=== PATIENT | male | born 1945 | race Caucasian/White ===

== ENCOUNTER 2018-10-08 11:51 | Emergency (ER) | payer MEDICARE, OTHER, SELFPAY ==
[2018-10-08 11:56] VITALS: BP 139/98; PULSE 90; RESP 18; TEMP 36.7; O2SAT 98
--- NOTE | 2018-10-08 12:10 | DI.RAD_ITS ---
SYMPTOMS/DIAGNOSIS: MEDIAL PAIN S/P TRACTOR INJURY LEFT FEMUR: Four views. No acute fracture or dislocation is seen. No radiopaque foreign bodies are seen in the soft tissues. Vascular calcifications are present. Degenerative changes are seen in the knee. IMPRESSION: No acute fracture or dislocation.
--- NOTE | 2018-10-08 12:11 | ED.GENADUL_ITS ---
Discharge Plan Disposition Patient Disposition: HOME Condition: Improving Discharge Details Chief Complaint: GenMedical Clinical Impression: Hematoma of left thigh Primary Care Provider: Unknown,Unknown ED Provider: Sage Nava Discharge Instructions Instructions: Hematoma (ED) Additional Instructions: May leave Mepilex border dressing in place over the lower leg for 7 days and then removed. At that time you may perform daily wet-to-dry dressing changes. You will likely have ongoing increased bruising of the left leg. Your ultra sound showed a large hematoma. As we discussed these can sometimes turn to solid calcified material, therefore I have referred you to the general surgery clinic for reevaluation and to consider possible drainage. Return for any acute concerns. Medical Decision Making 73-year-old male was trying to jump start his tractor and while running alongside it 10 days ago pinched his left leg between the tire and the ground. States he was not run over. Since that time he is developed both a left medial thigh soft tissue mass and has been treating a left distal tibia skin ulceration with daily dressing changes. He is afebrile and has an exam that reveals probable hematoma of the left medial thigh. Mepilex placed on left distal tibia ulceration. Referred for ultrasound and Xray. Patient has a left thigh hematoma. No evidence of DVT. X-ray without underlying bony injury. As he is at risk for the development of myositis ossificans, I think there would be a consideration for drainage of the hematoma and will refer him to general surgery clinic in follow-up. HPI General Mode of arrival: ambulatory . Date/Time Provider Initiated Documentation: 10/08/18 11:52 . Limitations to Documentation: no limitations . Information obtained by: patient . History of Present Illness 73 year old M presents to the emergency department with the chief complaint of Left leg pain for 10 days after accident, described as moderate, Quality is described as dull, and is localized to the left and lower extremity. Patient reports no radiation. Patient started experiencing this day(s) and it has been intermittent. Rest improves symptom(s), Movement worsens symptoms . Patient notes no other symptoms.; denies chest pain, fever/chills and syncope. Patient did receive the following treatments prior to arrival, none Related Data Allergies Allergy/AdvReac Type Severity Reaction Status Date / Time bee venom protein (honey bee) Allergy Mild Dizziness/L Unverified 10/08/18 12:04 ightheade General Stated Complaint: GenMedical ASHWIN: 3 Review of Systems Review of Systems 6 systems reviewed and otherwise negative [facility] Medical History High cholesterol (Chronic) HTN (hypertension) (Chronic) Social History Smoking/Tobacco Use Status: Former Tobacco Use Alcohol Intake: current Alcohol Intake frequency: a few times a week Alcohol type: beer Drug use: Never Substance use type: does not use Do you feel safe at home: Yes Do you feel safe in your relationship?: Yes Exam Narrative Exam Narrative: GEN: awake, alert, oriented 3. Pleasant, well groomed, interactive. HEAD: Normocephalic, atraumatic ENT: Mucous membranes moist, oropharynx unremarkable, External ear exam unremarkable EYES: PERRL, EOMI NECK: Full ROM, no TIMMY, no menigismus CHEST/RESP: Nontender ABDOMEN: Soft, nontender, no mass. +Bowel sounds EXT: Full ROM, there are healed skin grafts of the left posterior calf. The left medial thigh has an area of approximately 5 x 2 cm probable hematoma/soft tissue mass. No bony instability. No tenderness. The left distal medial tibia has a area of ulceration approximately 7 cm in diameter Neuro: Grossly normal neurologic exam, conversant, interactive. Psych: Speech fluent, thoughts congruent, affect normal Course Vital Signs Temperature 36.7 C 10/08/18 11:56 Pulse 90 10/08/18 11:56 Respiratory Rate 18 10/08/18 11:56 Blood Pressure 139/98 H 10/08/18 11:56 Pulse Oximetry 98 10/08/18 11:56 Temperature 36.7 C 10/08/18 11:56 Temperature Source Skin 10/08/18 11:56 Pulse 90 10/08/18 11:56 Respiratory Rate 18 10/08/18 11:56 Respiratory Effort Non-Labored 10/08/18 12:02 Blood Pressure 139/98 H 10/08/18 11:56 Blood Pressure Position Sitting 10/08/18 11:56 Pulse Oximetry 98 10/08/18 11:56 Oxygen Delivery Method Room Air 10/08/18 11:56 Oxygen Flow Rate 0 10/08/18 11:56 Pain Level 4 10/08/18 11:56
--- NOTE | 2018-10-08 13:28 | DI.US_ITS ---
SYMPTOMS/DIAGNOSIS: LT MEDIAL THIGH MASS AFTER INJURY SOFT TISSUE EXTREMITY ULTRASOUND: There is a complex predominantly cystic lesion in the soft tissues of the medial aspect of the left thigh. It measures 8.3 x 1.7 x 8.0 cm. No internal blood flow is seen. This corresponds to the area of injury. This likely reflects hematoma. Abscess or seroma is considered less likely.
[2018-10-08 14:03] VITALS: BP 128/88; PULSE 82; RESP 18; TEMP 36.6; O2SAT 98
--- NOTE | 2018-10-09 07:23 | NUR.NOTE ---
Referral faxed to [facility]Nursing Note:
== END 2018-10-08 14:07 | disposition home or self-care (01) ==
LOC: ER 13:22
PROVIDERS: Emergency Provider Emergency Medicine
DX: S70.12XA Contusion of left thigh, initial encounter (principal); V84.5XXA Driver of special agricultural vehicle injured in nontraffic accident, initial encounter; Y92.73 Farm field as the place of occurrence of the external cause; L97.829 Non-pressure chronic ulcer of other part of left lower leg with unspecified severity; I10 Essential (primary) hypertension
CPT/HCPCS: 73552; 76881; 99284

== ENCOUNTER 2019-08-12 09:26 | Outpatient (CLI) | payer MEDICARE, OTHER, SELFPAY ==
--- NOTE | 2019-08-12 09:15 | DI.RAD_ITS ---
EXAM: XR STANDING ALIGNMENT CLINICAL HISTORY: eval R knee pain TECHNIQUE: COMPARISON: CR XR FEMUR LT from 10/08/2018 CR XR KNEE LT 2V AP,LAT from 08/12/2019 CR XR KNEE RT 2V AP,LAT from 08/12/2019 FINDINGS: The AP standing alignment view is interpreted in conjunction with two view series of both right knee and left knee. There are moderate degenerative changes of both hips with moderate narrowing of the cartilaginous abdiaziz nt spaces of both hips superiorly and mild acetabular spurring bilaterally. There are severe degenerative changes of the right knee, there is medial femoral subluxation on the t ibia. There is virtually complete loss of the cartilaginous joint space of the medial tibiofemoral j oint with marked subchondral sclerosis, cyst formation, and remodeling of the adjacent surfaces. Sarika y prominent hypertrophic changes of all 3 joints of the right knee are noted. There are moderate degenerative changes of the left knee, moderate narrowing of medial tibiofemoral c artilaginous joint space, slight medial femoral subluxation on the tibia, mild to moderate marginal o steophyte formation involving all 3 joints of the left knee. Old healed right diaphyseal tibiofibular fracture noted. Ankle mortise appears fairly well maintained bilaterally. IMPRESSION:
== END 2019-08-12 09:46 ==
PROVIDERS: Visit Provider Student in an Organized Health Care Education/Training Program
DX: M25.561 Pain in right knee (principal); M25.562 Pain in left knee; M17.0 Bilateral primary osteoarthritis of knee; M16.0 Bilateral primary osteoarthritis of hip; I10 Essential (primary) hypertension
CPT/HCPCS: 99203; 99214; 73560; 77073

== ENCOUNTER 2019-08-23 11:00 | Outpatient (CLI) | payer MEDICARE, OTHER, SELFPAY | END 2019-08-23 11:20 | PROVIDERS: PCP Internal Medicine; Visit Provider Student in an Organized Health Care Education/Training Program | DX: Z01.818 Encounter for other preprocedural examination (principal); M17.0 Bilateral primary osteoarthritis of knee; I10 Essential (primary) hypertension ==

== ENCOUNTER 2019-08-26 01:59 | Outpatient (CLI) | payer MEDICARE, OTHER, SELFPAY ==
[2019-08-26 21:56] LABS: COVID-19 RT-PCR UVMMC Result Negative (Negative)
== END 2019-08-26 02:19 ==
PROVIDERS: PCP Internal Medicine; Visit Provider Student in an Organized Health Care Education/Training Program
DX: M25.561 Pain in right knee; M25.562 Pain in left knee; M17.0 Bilateral primary osteoarthritis of knee; Z01.812 Encounter for preprocedural laboratory examination; Z01.818 Encounter for other preprocedural examination; Z03.818 Encounter for observation for suspected exposure to other biological agents ruled out
CPT/HCPCS: 36415; 80048; 85027; U0003

== ENCOUNTER 2019-08-26 08:14 | Outpatient (CLI) | payer MEDICARE, OTHER, SELFPAY ==
[2019-08-26 10:24] LABS: HCT 41.5 % (40.0-50.0); HGB 14.6 g/dL (13.5-17.5); Mean Corp. HGB Concentration 35.2 g/dL (32.0-36.0); Mean Corpuscular Hemoglobin 31.9 pg (27.0-33.0); Mean Corpuscular Volume 90.6 fL (80-95); Mean Platelet Volume 10.5 fL (8.0-11.0); Platelet Count 221 x1000/uL (130-400); RBC 4.58 m/cumm (4.50-6.00); RBC Distribution Width 13.2 % (11.8-14.1); White Blood Cell Count 6.35 k/cumm (4.4-10.8)
[2019-08-26 11:58] LABS: Anion Gap 8.3 mmol/L (3-11); BUN 17 mg/dL (7-18); CO2 29.7 mmol/L (21.0-32.0); CREATININE 1.05 mg/dL (0.70-1.30); Calcium 9.4 mg/dL (8.5-10.1); Chloride 103 mmol/L (98-107); Glucose 114 mg/dL (74-106); Sodium 141 mmol/L (136-145)
== END 2019-08-26 08:34 ==
PROVIDERS: PCP Internal Medicine; Visit Provider Student in an Organized Health Care Education/Training Program
DX: M25.561 Pain in right knee (principal); M25.562 Pain in left knee; M17.0 Bilateral primary osteoarthritis of knee; Z01.818 Encounter for other preprocedural examination; Z01.812 Encounter for preprocedural laboratory examination
CPT/HCPCS: 36415; 80048; 85027

== ENCOUNTER → 2019-08-28 08:00 | Outpatient (BNVA) | payer MEDICARE, OTHER, SELFPAY | PROVIDERS: PCP Internal Medicine; Visit Provider Student in an Organized Health Care Education/Training Program | DX: R69 Illness, unspecified (principal) ==

== ENCOUNTER 2019-08-28 09:21 | Observation (INO) | payer MEDICARE, OTHER, SELFPAY ==
[2019-08-28] VITALS (9 sets, daily range): BP systolic 100–136; BP diastolic 67–94; PULSE 53–75; RESP 12–20; TEMP 36.5–36.6; O2SAT 92–98
[2019-08-28] MEDS: Gabapentin 300 MG CAP PO (10:06)
[2019-08-28] MEDS: Celecoxib 200 MG CAP 400 MG PO (10:06)
[2019-08-28] MEDS: Acetaminophen 500 MG TAB 1000 MG PO (10:07)
[2019-08-28] MEDS: Lactated Ringers 1,000 ML 80 ML IV ×2 (10:35→14:41)
[2019-08-28] MEDS: ceFAZolin 2 GM/50 ML BAG IVPB (12:22)
[2019-08-28] MEDS: Bupivacaine 0.25% Pres-Free 30 ML VIAL (13:06)
[2019-08-28] MEDS: Ketorolac 30 MG/ML VIAL (13:06)
[2019-08-28] MEDS: Normal Saline 20 ML VIAL (13:07)
--- NOTE | 2019-08-28 15:01 | DSE_ITS ---
Date of service: 08/28/19 Time of Service: 17:05 DS: Diagnosis Discharge Diagnosis (1) Arthritis of both knees: Status: Acute Discharge Plan Disposition Patient Disposition: HOME Condition: Good Discharge Details Reason For Visit: Right Knee Arthritis Admit Date/Time: 08/28/19 09:21 Admit Provider: Adi Cardona Attending Provider: Adi Cardona Primary Care Provider: Freddie Savage Hospital Course Hospital Course: Patient was admitted to the medical/surgical floor following the procedure. The surgery was tolerated well without any notable medical, surgical, or anesthetic complications. Mobilization began postoperatively. Patrice was voiding spontaneously. Vitals were stable. Physical therapy worked with the patient and was cleared for discharge home. No acute medical issues. Pain was controlled on oral regimen. Home Meds and New Rx's Prescriptions: New aspirin 81 mg tablet,delayed release (DR/EC) 81 mg PO BID Qty: 60 RF: 0 acetaminophen 500 mg tablet 1,000 mg PO Q8H PRN (Reason: pain) Qty: 90 RF: 3 pantoprazole 40 mg tablet,delayed release (DR/EC) 40 mg PO DAILY Qty: 30 RF: 0 docusate sodium [Colace] 100 mg capsule 100 mg PO BID PRNQty: 10 RF: 0 gabapentin 300 mg capsule 300 mg PO QHS Qty: 7 RF: 0 oxycodone 5 mg tablet 5 mg PO Q4H Qty: 18 RF: 0 naproxen 500 mg tablet 500 mg PO BID PRNQty: 60 RF: 0 Continued gemfibrozil 600 mg tablet 600 mg PO BID RF: 0 hydrochlorothiazide 25 mg tablet 25 mg PO DAILY RF: 0 losartan 100 mg tablet 100 mg PO DAILY RF: 0 terbinafine HCl [Athlete's Foot (terbinafine)] 1 % cream 1 applic TP BID RF: 0 multivitamin,tx-minerals Tablet 1 tab PO DAILY RF: 0 Discontinued aspirin 81 mg tablet,delayed release (DR/EC) 81 mg PO DAILY RF: 0 Discharge Instructions Additional Instructions: Dr. Cardona?s Total Knee Discharge Instructions Activity: The most important activity is to walk. You should try to take short walks a few times a day. It is important that when resting you work on keeping the knee straight. Avoid putting a pillow behind the knee as this will encourage flexion. Work on range of motion exercises as provided by Physical Therapy and the preoperative booklet. - Start outpatient physical therapy within 2 weeks. - You should wear the PAMELA hose on both legs for 2 weeks. Dressing: Keep the surgical dressing (Mepilex) in place for at least one week. If you went home on the surgical day, you should remove the ANNAMARIE wrap on the second day and then apply the PAMELA hose. The dressing may get wet after 3 days but avoid soaking the dressing. If it gets wet, just lightly pat dry. Most patient prefer to cover with ClingWrap or Saran Wrap to keep the dressing dry. After the first week, the dressing may be removed and replaced with light gauze and tape or nothing. Medications: - You should take Tylenol and anti-inflammatory Celebrex as your primary pain control medications - You have been prescribed a stronger pain medication Oxycodone for breakthrough pain, take as needed as prescribed. - You have also been prescribed a stomach acid reduction agent Pantoprozole to help reduce stomach acid and reflux. - You have also been prescribed Gabapentin to take at night for nerve pain and sleep. - You will be taking Aspirin 81mg twice a day for DVT prevention unless instructed otherwise. - If you have constipation you should take Colace or Miralax (both [id number]). Miralax was called in. It takes most people 3-4 days to have a bowel movement. Follow-up: 2 weeks. You should also call physical therapy to work on scheduling outpatient therapy sessions which can begin at 2 weeks. If you have any acute concerns or questions, please do not hesitate to contact the office at [phone]. You may contact Dr. Cardona with any questions after hours through the hospital at [phone] or on his cell phone at [phone]. Referrals: Adi Cardona MD [ [facility] STAFF PHYSICIAN] - 09/16/19 3:00 pm Activity:: Activity as Tolerated Equipment/Supplies:: Walker Diet:: As Tolerated Discharge Orders Discharge Orders: Discharge Order (Routine); Ordered 08/28/19 Ordered By: Adi Cardona DS: Summary Status at Discharge Functional status at discharge: uses cane/walker Overall status at discharge: patient is progressing back to baseline Mental Status: mental status grossly normal Speech and Movement: speech and movement normal Mood: congruent mood Affect: normal affect Exam Psych Mental Status: mental status grossly normal Speech and Movement: speech and movement normal Mood: congruent mood Affect: normal affect DS: Data Vitals/I&O Vitals and I&O: Vital Signs Temperature 36.5 C 08/28/19 09:34 Pulse 58 L 08/28/19 09:34 Pulse Rhythm Regular 08/28/19 09:34 Respiratory Rate 18 08/28/19 09:34 Respiratory Effort 08/28/19 09:34 Respiratory Depth Normal 08/28/19 09:34 Respiratory Pattern Normal 08/28/19 09:34 Blood Pressure 136/86 08/28/19 09:34 Pulse Oximetry 98 08/28/19 09:34 Oxygen Delivery Method Room Air 08/28/19 09:34 Oxygen Flow Rate 0 08/28/19 09:34 Pain Level 0 08/28/19 09:34 Intake & Output 08/27/19 08/28/19 08/28/19 23:59 11:59 23:59 Intake Total 1170 / 1170 Output Total 500 / 500 Balance 670 / 670 Weight 118.6 kg Intake: IV 1170 / 1170 Output: Estimated Blood Loss 500 / 500 [facility] Medical History Diverticulosis (Acute) Esophageal reflux (Chronic) Hematoma of left thigh (Acute) Hemorrhoids (Acute) High cholesterol (Chronic) HTN (hypertension) (Chronic) Nicotine dependence (Acute) chewing tobacco Obesity (Chronic) Sensorineural hearing loss of both ears (Acute) Shortness of breath (Acute) PT. DENIES THIS Sleep apnea (Acute) DOES NOT USE CPAP Tinea of the body (Acute) PT. DENIES THIS Umbilical hernia (Acute) Social History Smoking/Tobacco Use Status: Current every day Alcohol Intake: current Alcohol Intake frequency: a few times a week Alcohol type: beer Drug use: Never Substance use type: does not use Current gender identity: male Do you feel safe at home: Yes Do you feel safe in your relationship?: Yes
--- NOTE | 2019-08-28 16:15 | IN_ITS ---
Date of service: 08/28/19 Time of Service: 16:15 PT Notes Visit Reasons: Right Knee Arthritis Physical Therapy Inpatient Initial Evaluation Date: 08/28/2019 Referring Doctor: Adi Cardona MD PT Orders: PT CONSULT: Status post Ortho surgery. Status post right R TKA Precautions: Fall. Standard. WBAT on right LE. Patient Profile/Admitting Diagnosis: Patrice this is a 74-year-old male male bilateral osteoarthritis status post right total knee arthroplasty on postoperative day 0. PMHX: Medical History Diverticulosis (Acute) Esophageal reflux (Chronic) Hematoma of left thigh (Acute) Hemorrhoids (Acute) High cholesterol (Chronic) HTN (hypertension) (Chronic) Nicotine dependence (Acute) chewing tobacco Obesity (Chronic) Sensorineural hearing loss of both ears (Acute) Shortness of breath (Acute) PT. DENIES THIS Sleep apnea (Acute) DOES NOT USE CPAP Tinea of the body (Acute) PT. DENIES THIS Umbilical hernia (Acute) Social History/Home Situation: Patrice lives with in a private home with 4 steps to enter with one rail that leads onto a porch and another step up to the main entrance of the house. He was independent with all aspects of ADLs prior to surgery but has had increasing difficulty with performing all of them due to persistent knee pain. Equipment Owned/DME: Front wheeled walker Subjective: I expected to have more pain with walking than this. Patrice is happy with how much she is able to do now without hurting as it did prior to surgery. He understands that the pain may be more eventually but he wants to stay on top of it. Objective: General Observation: IV in the right UE. TEDS on left leg. Mental Status: Alert and oriented x 4 Pain: 1?2/10 in the right knee with ambulation activity Vital signs: Within normal limits as measured before PT session by nurse Smith ROM: Right Upper Extremity: Shoulder Flexion WFL. Shoulder abduction WFL. Elbow flexion WFL. Wrist flexion WFL. Opening and closing of hand WFL. Left Upper Extremity: Shoulder Flexion WFL. Shoulder abduction WFL. Elbow flexion WFL. Wrist flexion WFL. Opening and closing of hand WFL. Right Lower Extremity: Hip flexion WFL. Hip abduction WFL. Knee flexion -10 to 110 degrees. Knee extension -10 degrees. Ankle dorsiflexion WFL. Ankle plantarflexion WFL. Left Lower Extremity: Hip flexion WFL. Hip abduction WFL. Knee flexion WFL. Ankle dorsiflexion WFL. Ankle plantarflexion WFL. Strength: Right Upper Extremity: Shoulder flexors 5/5. Shoulder abductors 5/5. Elbow flexors 5/5. Elbow extensors 5/5. [employer] strong. Left Upper Extremity: Shoulder flexors 5/5. Shoulder abductors 5/5. Elbow flexors 5/5. Elbow extensors 5/5. [employer] strong. Right Lower Extremity: Hip flexors 5/5. Hip abductors 5/5. Knee flexors 3-/5. Knee extensors 3-/5. Ankle dorsiflexors 5/5. Ankle plantarflexors 5/5. Left Lower Extremity:Hip flexors 5/5. Hip abductors 5/5. Knee flexors 5/5. Knee extensors 5/5. Ankle dorsiflexors 5/5. Ankle plantarflexors 5/5. Sensation: Intact as to pain and pressure on bilateral lower extremities. Bed Mobility/Transfers: Supine to sit modified independent Sit to stand standby assist requiring minimal verbal cueing for hand placement, requires use of front wheeled walker Stand to sit standby assist requiring minimal verbal cueing for hand placement Bed to chair standby assist requiring minimal verbal cueing for hand placement, requires use of front wheeled walker Chair to bed standby assist requiring minimal verbal cueing for hand placement, requires use of front wheeled walker Gait: Patient tolerated level surface ambulation of 260 feet using front wheeled walker with step through gait pattern with supervision assist from PT. ANNA Olivas provided wheelchair follow for safety. Patient also tolerated up-and-down six 4 inch steps and four 6 inch steps while holding onto bilateral rails requiring supervision assist with step to gait pattern. Reported minimal improvement in the right knee after activity. Balance: Static Sitting: Normal Dynamic Sitting: Normal Static Standing: Fair Dynamic Standing: Fair Special Tests: Mobility Limitations Standardized Measure [facility] 6 clicks Basic Mobility Inpatient Short Form: Raw Score: 24 CMS Score: 0% deficit Informed Consent/Education: Patient instructed in purpose of PT consult and plan of care. Assessment: Patrice demonstrates functional mobility decline requiring the need for a front wheeled walker for all mobility ADL performance, minimal limitation in range of motion, and minimal impairment in strength resulting from postoperat shannan status. Patrice this is a 74-year-old male male bilateral osteoarthritis status post right total knee arthroplasty on postoperative day 0. Patient presents with clinical signs and symptoms consistent with current/admitting diagnoses that have resulted to mobility limitations, gait instability, generalized weakness, and impairment of motor control as demonstrated by the following impairment level findings: 1. Decreased strength to right knee major muscle groups 2. Impaired standing balance 3. Limitation of joint range of motion in right knee Impairments are contributing to the following functional limitations: 1. Inability to safely ambulate without assistive device and physical assistance 2. Increase completion time for mobility ADL performance Patient is assessed as a [id number] moderate complexity based on the following: History: 74-year-old male with impairment level findings, functional limitations, and past medical history as indicated above Examination: Demonstrable impairment in strength, balance, and mobility level with underlying impairments and functional limitations as documented above Presentation:Evolving Decision Makin moderate complexity Goals: N/A. PT consult and 1 therapy session only. Plan of Care/Treatment Plan: N/A. PT consult and 1 therapy session only. DISCHARGE RECOMMENDATIONS: Home when medically cleared by orthopedic surgeon. May benefit from outpatient PT services at orthopedic surgeon's discretion at orthopedic follow-up in 2 weeks. PT intervention: Session today consisted of initial physical therapy evaluation and education/training on functional mobility performance using the front wheeled walker. TREATMENT CODE/TIME: 62070 x 30 minutes, 46161 x 26 minutes beginning at 16:15 PM. Thank you very much for this referral. Suni Rhoades PT, DPT, CLT [facility] [place], [place]
--- NOTE | 2019-08-28 16:58 | W.PM.OP ---
Date of service: 08/28/19 Time of Service: 14:58 Operative Note Operative Note DATE OF PROCEDURE: 08/28/19 PRE-OP DIAGNOSIS: Right Knee Arthritis POST-OP DIAGNOSIS: same PROCEDURE: Right Total Knee Arthroplasty with Intraoperative Navigation SURGEON: Adi Cardona [employer]ERCIAL ROOFING ESTIMATOR: Latanya Storm ANESTHESIA: regional and spinal ESTIMATED BLOOD LOSS: 500 PATHOLOGY: none sent TOURNIQUET TIME: 34 COMPLICATIONS: None Patient was transported to: PACU Patient's condition: stable Implants: 1. Depuy Attune Cruciate Retaining Femoral Component, Size 8 2. Depuy Attune Rotating Platform Tibial Component, Size 7 3. Depuy Attune 8x8mm CR, RP Poly 4. Depuy Attune Patellar Component, Size 41mm Indications: I have seen Patrice in clinic for symptoms of knee arthritis, confirmed with radiographic findings. He has exhausted nonoperative methods and was having significant limitations in daily function and desired better function and less pain. I discussed the technical details of a knee replacement. I explained the risks of the procedure to include, but not limited to, bleeding, infection, pain, stiffness, fracture, damage to nerves and vessels, damage to muscles and tendons, loosening, need for repeat procedure, blood clot and cardiopulmonary demise. Despite these risks, Patrice elected to proceed. Findings: There was significant signs of arthritis throughout the knee. Large osteophytes were present throughout with bony loose bodies. Orthoalign navigation was utilized due to leg deformity from previous fracture. Procedure Description: Patrice was greeted in the preoperative holding area where the correct side was identified and marked. The consent was reviewed with the patient and signed. The history and physical was updated. All questions were answered. Preoperative mediacations were administered: Acetaminophen 1000mg, Celebrex 400mg, Gabapentin 300mg, and Oxycontin 10mg. An adductor canal block was then administered by the anesthesia team in the PACU. Patrice was taken back to the operating room. A spinal anesthestic was then administered. The patient was placed into the supine position on the operating room table. A nonsterile tourniquet was placed high onto the leg but only used for cementing. Posts were placed for positioning during the procedure. All bony prominences were well padded. Prophylactic antibiotics in the form of Cefazolin were administered. 1g of Tranxemic Acid was given intravenously within 30 minutes of incision. The right leg was then prepped with Chloraprep and draped in a standard fashion with impervious stockinette and extremity drape with Iodine impregnated skin protection. A timeout to confirm correct identity, side and site, procedure, allergies, anesthesia, and medical concerns was performed. With the knee in some flexion, a midline incision was made overlying the knee. Full thickness skin flaps were raised once the extensor mechanism was encountered. These were raised medially and laterally. Any bleeding was controlled with electrocautery. Once the extensor mechanism was fully exposed, a medial parapatellar arthrotomy was performed in a flexed position. All bleeding from the arthrotomy and the geniculate arteries was coagulated. A medial subperiosteal peel was performed with electrocautery to the midcoronal plane. The fat pad was removed while keeping the patellar tendon protected. The anterior distal femur synovium was removed for later visualization. The ACL and PCL were resected and the anterior horn of the lateral meniscus was transected. The knee was then flexed with the patella everted. Large osteophytes from the tibia were removed. Large osteophytes from the femur were removed. A single starting pin was then placed 1cm anterior to the PCL insertion and the notch in the direction of the femoral head. The OrthoAlign device was applied over the pin. It was oriented to be in line with the epicondylar axis and the trochlear groove. It was then pinned into place. The navigation computer was then turned on and calibrated. The distal femur cut was set at 0 degrees varus/valgus and 2.5 degrees flexion. The distal femur cutting guide then was positioned for a 11mm cut due to 15 degree flexion contracture. The distal femur was cut with an oscillating saw while protecting the soft tissues. The tibia was then addressed. The OrthoAlign device was placed over the tibial tubercle and medial tibia and secured into position. Once again, OrthoAlign was calibrated and then set for a 0 degree varus/valgus cut and 5 degrees of posterior slope. With this locked into position, the cut thickness stylus was used to assess cut thickness. The medial side, most involved side, was set for a 4mm cut. This was then held in position and pinned into place with 2 additional pins and a cross pin for stability. The medial and lateral collateral ligaments were protected and the cut was performed. With this completed, it was assessed and noted to be of appropriate dimensions. The guide and OrthoAlign was removed. A spacer block was inserted and the knee was brought into extension. The 7mm spacer block provided full extension, without hyperextension and with stability of both the medial and lateral collateral ligaments was assessed. The pins from the femur and the tibia were then removed. The distal femur was then sized. The anterior stylus was placed onto the lateral ridge of the anterior femur. This indicated a size 8 femur. The external rotation of the guide was adjusted to 3 degrees to match the epicondylar axis, perpendicular to [place]s line. The 4-in-1 cutting guide was the placed. The posterior medial femur cut was evaluated and appeared of good thickness. The spacer block was inserted underneath the cutting guide and stability was confirmed in 90 degrees of flexion. An kenji wing was used to confirm appropriate position of the anterior cut to avoid notching. This cutting guide was ensured to be flush on the cut surface and then pinned into place with headed pins. While protecting the soft tissues, quad tendon, and collateral ligaments, the anterior and posterior cuts were performed with a saw. The central two pins were removed and the posterior and anterior chamfers were cut next. The notch-cutting guide was placed. This was pinned to lateralize the femoral component as much as possible while keeping it flush on the cut surface. This was then pinned into position. A reciprocating saw was used to make the notch cut. A rasp smoothed the cut surfaces. A trial posterior stabilized femoral component was then inserted, impacted down to the cut surfaces, and the lug holes were drilled. A provisional trial tibial component was placed and the knee was brought through range of motion. There was noted to be excellent extension and flexion with an 8mm poly. There was no significant instability. The patella was tracking without thumbs. The tibial cut surface was fully exposed. The medial and lateral menisci were removed. The tibia was then sized as a 7. The tibia had been previously marked during trialing to correspond to the center of the tibial component to help with rotation. The trial was aligned to this karine, approximately rotated to the medial 1/3rd of the tibial tubercle. The trial was pinned into place. The tibia was prepared with a reamer and a keel punch. The knee was then brought into extension and the patella was measured as 28mm. Using the patellar clamp and cut guide, this was resected to a flat surface with at least 13mm of thickness remaining. The size 41 patella fit the best. This was oriented and then clamped into position. The lugs were drilled. The trial components were removed. The final components, except for the polyethylene were opened on the back table. The periosteal and capsular tissues, especially posteriorly, around the knee were then systematically injected with a periarticular cocktail consisting of 50cc 0.25% Marcaine, 30mg Ketorolac, 20cc of Exparal and 50cc of injectable saline. The tourniquet was then inflated to 275mmHg. The knee was thoroughly irrigated with a pulse lavage and dried. On the back table, with the implants opened, the cement was mixed. 2 batches of antibiotic laden cement were prepared with vacuum assistance. After the cement was ready a small amount was placed on to the back side of the tibial component at the keel. A small amount was placed onto the posterior flange of the femur. Cement was manual pressurized and impregnated into the cut surface of the tibia. The tibial component was then inserted into the cut surface and impacted into position. Excess cement was removed and the component was reimpacted. Again, excess cement was removed and our attention was then turned to the femur. The femoral cut surface was once again dried and cement was manually impacted into the cut surface. The femoral component was lined with the lug holes and impacted. Excess cement was removed. It was ensured to be down against the cut surface. The trial polyethylene was then inserted and the leg was brought out into full extension for the duration of the cement curing process, approximately 15min. Cement was lastly manually impacted into the cut surface of the patella and the patellar button was clamped into position and held. During this process attention was turned to the gutters of the knee and for all interfaces for any excess cement. After the cement had finally cured, approximately 15min, the clamp was removed from the patella and the knee was taken through range of motion. A size 8mm polyethylene component provided the best range of motion and stability with less than 2mm gapping with medial and lateral stress and full extension without significant hyperextension. The patella was tracking with a no-thumbs technique. The trial poly was removed and once again the knee was checked for any loose, excess, or errant cement. The poly component was then inserted into position after cleaning and drying the tibial tray. The capsule was then reapproximated with a No. 1 Vicryl at multiple locations. The capsule was finally closed with a No. 2 Stratafix, barbed suture. The tourniquet was then released and the arthrotomy appeared watertight without significant bleeding. The second dosing of 1g TXA was started. Deep tissues were then reapproximated with 0 Vicryl and 2-0 Vicryl. The skin was closed with a running 3-0 Monocryl in a subcuticular fashion. This was reinforced with skin glue. A Mepilex silver dressing was applied along with a [id number] ANNAMARIE wrap. A CryoCuff was applied. Patrice was transferred to the hospital bed without difficulty an suffering no apparent complication. Patrice has a good prognosis. Physical therapy will start today and without restrictions, weight-bearing as tolerated. Aspirin 81mg BID will be used for DVT prophylaxis.
--- NOTE | 2019-08-28 18:23 | NUR.NOTE ---
Nursing Note: 1540 Admitted to Room 225 via bed from PACU. Report from NAVDEEP Carrera. Pt A&O x3. Minimal pain.
== END 2019-08-28 18:00 | disposition home or self-care (01) ==
LOC: PDS 15:08 → MS 15:09
PROVIDERS: Admitting Provider Student in an Organized Health Care Education/Training Program; PCP Internal Medicine; Visit Provider Student in an Organized Health Care Education/Training Program
PROC: 0SRC0J9 Replacement of Right Knee Joint with Synthetic Substitute, Cemented, Open Approach (ICD-10-PCS; CPT 27447; principal; 2019-08-28 13:00)
DX: M17.11 Unilateral primary osteoarthritis, right knee (principal); M25.561 Pain in right knee; Z96.651 Presence of right artificial knee joint; G89.18 Other acute postprocedural pain; I10 Essential (primary) hypertension; G47.33 Obstructive sleep apnea (adult) (pediatric)
CPT/HCPCS: 27447; 20985; C1776; 97162; 97530; NC; G0378; J0690; J1100; J1885; J2001; J2250; J2405

== ENCOUNTER 2019-09-19 09:52 | Outpatient (CLI) | payer MEDICARE, OTHER, SELFPAY ==
--- NOTE | 2019-09-19 08:30 | DI.RAD_ITS ---
EXAM: XR KNEE RT 1V CLINICAL HISTORY: 1st post op. TECHNIQUE: 2D digital imaging was performed. Standing AP views were performed from the pelvis throu gh the ankles. COMPARISON: CR XR KNEE LT 2V AP,LAT from 08/12/2019 CR XR KNEE RT 2V AP,LAT from 08/12/2019 CR XR STANDING ALIGNMENT from 09/19/2019 FINDINGS: There is mild bilateral hip joint space narrowing. There is a total right knee prosthesis which show s satisfactory alignment.. There are old healed fracture deformities of the right proximal tibia and fibula. There are advanced degenerative changes of the left knee. The ankle joint spaces are well m aintained. There is a leg length discrepancy at the level of the femoral heads, with the right femor al head projecting approximately 15 millimeters superior to the right. IMPRESSION: Right knee prosthesis. Right tibial and fibular fracture deformities. Degenerative changes of the l eft knee. Leg length discrepancy. DATA REPOSITORY: RADIATION DOSE DELIVERED:
== END 2019-09-19 10:12 ==
PROVIDERS: PCP Internal Medicine; Referring Provider Internal Medicine; Visit Provider Student in an Organized Health Care Education/Training Program
DX: Z96.651 Presence of right artificial knee joint (principal); M21.70 Unequal limb length (acquired), unspecified site; Z47.1 Aftercare following joint replacement surgery; M17.0 Bilateral primary osteoarthritis of knee; I10 Essential (primary) hypertension
CPT/HCPCS: 73560; 77073

== ENCOUNTER 2019-10-04 08:01 | Outpatient (CLI) | payer MEDICARE, OTHER, SELFPAY ==
[2019-10-05 23:52] LABS: COVID-19 RT-PCR Result NEGATIVE (Negative)
== END 2019-10-04 08:21 ==
PROVIDERS: PCP Internal Medicine; Visit Provider Student in an Organized Health Care Education/Training Program
DX: M17.0 Bilateral primary osteoarthritis of knee (principal)
CPT/HCPCS: U0003

== ENCOUNTER 2019-10-08 09:29 | Observation (INO) | payer MEDICARE, OTHER, SELFPAY ==
[2019-10-08] VITALS (13 sets, daily range): BP systolic 85–139; BP diastolic 59–87; PULSE 55–93; RESP 12–18; TEMP 35.2–36.7; O2SAT 93–98
[2019-10-08] MEDS: Acetaminophen 500 MG TAB 1000 MG PO ×2 (09:45→14:18)
[2019-10-08] MEDS: Celecoxib 200 MG CAP 400 MG PO (09:45)
[2019-10-08] MEDS: Lactated Ringers 1,000 ML 80 ML IV (09:45)
[2019-10-08] MEDS: ceFAZolin 2 GM/50 ML BAG IVPB (10:37)
--- NOTE | 2019-10-08 10:43 | DSE_ITS ---
Date of service: 10/08/19 DS: Diagnosis Discharge Diagnosis (1) Left knee DJD: Status: Acute Discharge Plan Disposition Patient Disposition: HOME Condition: Good Discharge Details Reason For Visit: L KNEE DJD Admit Date/Time: 10/08/19 09:29 Admit Provider: Adi Cardona Attending Provider: Adi Cardona Primary Care Provider: Freddie Savage Hospital Course Hospital Course: Patient was admitted to the medical/surgical floor following the procedure. The surgery was tolerated well without any notable medical, surgical, or anesthetic complications. Mobilization began postoperatively. Patrice was voiding spontaneously. Vitals were stable. Physical therapy worked with the patient and was cleared for discharge home. No acute medical issues. Pain was controlled on oral regimen. Home Meds and New Rx's Prescriptions: New aspirin 81 mg tablet,delayed release (DR/EC) 81 mg PO BID Qty: 60 RF: 0 gabapentin 300 mg capsule 300 mg PO QHS Qty: 7 RF: 0 Continued gemfibrozil 600 mg tablet 600 mg PO BID RF: 0 hydrochlorothiazide 25 mg tablet 25 mg PO DAILY RF: 0 losartan 100 mg tablet 100 mg PO DAILY RF: 0 terbinafine HCl [Athlete's Foot (terbinafine)] 1 % cream 1 applic TP BID RF: 0 multivitamin,tx-minerals Tablet 1 tab PO DAILY RF: 0 acetaminophen 500 mg tablet 1,000 mg PO Q8H PRN (Reason: pain) Qty: 90 RF: 3 naproxen 500 mg tablet 500 mg PO BID PRNQty: 60 RF: 0 Discontinued ibuprofen [Advil] 200 mg Tablet 200 - 600 mg PO Q6H PRNRF: 0 aspirin 81 mg tablet,delayed release (DR/EC) 81 mg PO BID Qty: 60 RF: 0 Discharge Instructions Additional Instructions: Dr. Cardona?s Total Knee Discharge Instructions Activity: The most important activity is to walk. You should try to take short walks a few times a day. It is important that when resting you work on keeping the knee straight. Avoid putting a pillow behind the knee as this will encourage flexion. Work on range of motion exercises as provided by Physical Therapy and the preoperative booklet. - Start outpatient physical therapy within 2 weeks. - You should wear the PAMELA hose on both legs for 2 weeks. Dressing: Keep the surgical dressing (Mepilex) in place for at least one week. If you went home on the surgical day, you should remove the ANNAMARIE wrap on the second day and then apply the PAMELA hose. The dressing may get wet after 3 days but avoid soaking the dressing. If it gets wet, just lightly pat dry. Most patient prefer to cover with ClingWrap or Saran Wrap to keep the dressing dry. After the first week, the dressing may be removed and replaced with light gauze and tape or nothing. Medications: - You should take Tylenol and anti-inflammatory Naproxen as your primary pain control medications - You have been prescribed a stronger pain medication Oxycodone for breakthrough pain, take as needed as prescribed. - You have also been prescribed a stomach acid reduction agent Pantoprozole to help reduce stomach acid and reflux. - You have also been prescribed Gabapentin to take at night for nerve pain and sleep. - You will be taking Aspirin 81mg twice a day for DVT prevention unless instructed otherwise. - If you have constipation you should take Colace or Miralax (both [id number]). Miralax was called in. It takes most people 3-4 days to have a bowel movement. Follow-up: 2 weeks. You should also call physical therapy to work on scheduling outpatient therapy sessions which can begin at 2 weeks. If you have any acute concerns or questions, please do not hesitate to contact the office at [phone]. You may contact Dr. Cardona with any questions after hours through the hospital at [phone] or on his cell phone at [phone]. Stand Alone Forms: Nursing Discharge Form Referrals: Adi Cardona MD [ [facility] STAFF PHYSICIAN] - 10/28/19 9:00 am Activity:: Activity as Tolerated Equipment/Supplies:: No Equipment Needed Diet:: As Tolerated Discharge Orders Discharge Orders: Discharge Order (Routine); Ordered 10/08/19 Ordered By: Adi Cardona DS: Summary Status at Discharge Functional status at discharge: uses cane/walker Overall status at discharge: patient is progressing back to baseline Mental Status: mental status grossly normal Speech and Movement: speech and movement normal Mood: congruent mood Affect: normal affect Exam Psych Mental Status: mental status grossly normal Speech and Movement: speech and movement normal Mood: congruent mood Affect: normal affect DS: Data Vitals/I&O Vitals and I&O: Vital Signs Temperature 36.6 C 10/08/19 09:48 Pulse 93 H 10/08/19 09:48 Pulse Rhythm Regular 10/08/19 09:48 Respiratory Rate 18 10/08/19 09:48 Respiratory Effort 10/08/19 09:48 Respiratory Depth Normal 10/08/19 09:48 Respiratory Pattern Normal 10/08/19 09:48 Blood Pressure 139/87 10/08/19 09:48 Pulse Oximetry 98 10/08/19 09:48 Oxygen Delivery Method Room Air 10/08/19 09:48 Oxygen Flow Rate 0 10/08/19 09:48 Comment 10/08/19 09:48 Intake & Output 10/07/19 10/07/19 10/08/19 11:59 23:59 11:59 Weight 116.8 kg [facility] Medical History Diverticulosis (Acute) Esophageal reflux (Chronic) Hematoma of left thigh (Acute) Hemorrhoids (Acute) High cholesterol (Chronic) HTN (hypertension) (Chronic) Left knee DJD (Acute) Nicotine dependence (Acute) chewing tobacco Obesity (Chronic) Sensorineural hearing loss of both ears (Acute) Shortness of breath (Acute) PT. DENIES THIS Sleep apnea (Acute) DOES NOT USE CPAP Tinea of the body (Acute) PT. DENIES THIS Umbilical hernia (Acute) Surgical History History of colonoscopy (Chronic) History of fracture (Acute) right leg History of hernia repair (Chronic) Status post total right knee replacement (Acute 08/28/19) Social History Smoking/Tobacco Use Status: Current every day Alcohol Intake: current Alcohol Intake frequency: a few times a week Alcohol type: beer Drug use: Never Substance use type: does not use Current gender identity: male Do you feel safe at home: Yes Do you feel safe in your relationship?: Yes
[2019-10-08] MEDS: Bupivacaine 0.25% Pres-Free 30 ML VIAL (11:09)
[2019-10-08] MEDS: Ketorolac 30 MG/ML VIAL (11:10)
[2019-10-08] MEDS: Normal Saline 20 ML VIAL (11:11)
--- NOTE | 2019-10-08 14:24 | ROE_ITS ---
Date of service: 10/08/19 Time of Service: 12:24 Operative Note Operative Note DATE OF PROCEDURE: 10/08/19 PRE-OP DIAGNOSIS: Left Knee Osteoarthritis POST-OP DIAGNOSIS: same PROCEDURE: Left Total Knee Replacement SURGEON: Adi Cardona ELECTRIC BATH ATTENDANT: Yolanda Wesley ANESTHESIA: GETA and regional ESTIMATED BLOOD LOSS: 200 PATHOLOGY: none sent TOURNIQUET TIME: 33 COMPLICATIONS: None Patient was transported to: PACU Patient's condition: stable Implants: 1. Depuy Attune Cruciate Retaining Femoral Component, Size 7 2. Depuy Attune Rotating Platform Tibial Component, Size 7 3. Depuy Attune 7x6 CR,RP Poly 4. Depuy Attune Patellar Component, Size 38 Indications: I have seen Patrcie in clinic for symptoms of knee arthritis, confirmed with radiographic findings. Patrice has exhausted nonoperative methods and was having significant limitations in daily function and desired better function and less pain. He had a successful replacement on the right side. I discussed the technical details of a knee replacement. I explained the risks of the procedure to include, but not limited to, bleeding, infection, pain, stiffness, fracture, damage to nerves and vessels, damage to muscles and tendons, loosening, need for repeat procedure, blood clot and cardiopulmonary demise. Despite these risks, he elected to proceed. Findings: There was significant signs of arthritis throughout the knee. Procedure Description: Patrice was greeted in the preoperative holding area where the correct side was identified and marked. The consent was reviewed with the patient and signed. The history and physical was updated. All questions were answered. Preoperative mediacations were administered: Acetaminophen 1000mg, Celebrex 400mg, and Gabapentin 300mg. An adductor canal block was then administered by the anesthesia team in the PACU. Patrice was taken back to the operating room. A general anesthetic was administered. The patient was placed into the supine position on the operating room table. A nonsterile tourniquet was placed high onto the leg but only used for cementing. Posts were placed for positioning during the procedure. All bony prominences were well padded. Prophylactic antibiotics in the form of Cefazolin were administered. 1g of Tranxemic Acid was given intravenously within 30 minutes of incision. The left leg was then prepped with Chloraprep and draped in a standard fashion with impervious stockinette and extremity drape. A second prep with Chloraprep was performed prior to placing Ioband. A timeout to confirm correct identity, side and site, procedure, allergies, anesthesia, and medical concerns was performed. With the knee in some flexion, a midline incision was made overlying the knee. Full thickness skin flaps were raised once the extensor mechanism was encountered. These were raised medially and laterally. Any bleeding was controlled with electrocautery. Once the extensor mechanism was fully exposed, a medial parapatellar arthrotomy was performed in a flexed position. All bleeding from the arthrotomy and the geniculate arteries was coagulated. A medial subperiosteal peel was performed with electrocautery to the midcoronal plane. The fat pad was removed while keeping the patellar tendon protected. The anterior distal femur synovium was removed for later visualization. The ACL and PCL were resected and the anterior horn of the lateral meniscus was transected. The knee was then flexed with the patella everted. Large osteophytes from the tibia were removed. Large osteophytes from the femur were removed. Using a step drill, and based on preoperative templating, the femoral canal was entered. This was done with a step drill without any difficulty. The intramedullary distal femoral cut guide was inserted, set to a 5 degree valgus cut and 9mm cut thickness. There was some hypoplasia of the lateral femoral condyle and any remnant cartilage of the medial femoral condyle was removed for appropriate thickness. The distal femoral cut guide was then held in position and pinned. With the soft tissues protected, the distal cut was performed. This was passed over a few times to ensure a planar cut. I then turned attention to the tibia. The extramedullary guide was placed onto the leg. The distal aspect was slid medial to adjust for position of center of ankle and stay in line with shaft of the tibia. Approximately 3-5 degrees of posterior slope was kept in the proximal cutting guide. The center of the guide was aligned with the PCL. The stylus was used to assess cut thickness. The medial side, most involved side, was set for a 4mm cut. This was then held in position and pinned into place with 2 additional pins and a cross pin for stability. The medial and lateral collateral ligaments were protected and the cut was performed. With this completed, it was assessed and noted to be of appropriate dimensions. The guide was removed. A spacer block was inserted and the knee was brought into extension. The 6mm spacer block provided full extension, without hyperextension and with stability of both the medial and lateral collateral ligaments was assessed. The pins from the femur and the tibia were then removed. The distal femur was then sized. The anterior stylus was placed onto the lateral ridge of the anterior femur. This indicated a size 7 femur. The external rotation of the guide was adjusted to 3 degrees to match the epicondylar axis, perpendicular to Ciales?s line. The 4-in-1 cutting guide was the placed. The posterior medial femur cut was evaluated and appeared of good thickness. The spacer block was inserted underneath the cutting guide and stability was confirmed in 90 degrees of flexion. An kenji wing was used to confirm appropriate position of the anterior cut to avoid notching. This cutting guide was ensured to be flush on the cut surface and then pinned into place with headed pins. While protecting the soft tissues, quad tendon, and collateral ligaments, the anterior and posterior cuts were performed with a saw. The central two pins were removed and the posterior and anterior chamfers were cut next. The notch-cutting guide was placed. This was pinned to lateralize the femoral component as much as possible while keeping it flush on the cut surface. This was then pinned into position. A reciprocating saw was used to make the small notch cut. A trial CR femoral component was then inserted, impacted down to the cut surfaces, and the lug holes were drilled. A provisional trial tibial component was placed and the knee was brought through range of motion. There was noted to be excellent extension and flexion. There was no significant instability. The patella was tracking without thumbs. The tibial cut surface was fully exposed. The medial and lateral menisci were removed. The tibia was then sized as a 3. The tibia had been previously marked during trialing to correspond to the center of the tibial component to help with rotation. The trial was aligned to this karine, approximately rotated to the medial 1/3rd of the tibial tubercle. The trial was pinned into place. The tibia was prepared with a reamer and a keel punch. The knee was then brought into extension and the patella was measured as 25mm. Using the patellar clamp and cut guide, this was resected to a flat surface with at least 13mm of thickness remaining. The size 38 patella fit the best. This was oriented and then clamped into position. The lugs were drilled. The trial components were removed. The final components, except for the po lyethylene were opened on the back table. The periosteal and capsular tissues, especially posteriorly, around the knee were then systematically injected with a periarticular cocktail consisting of 50cc 0.25% Marcaine, 30mg Ketorolac, 20cc of Exparal and 50cc of injectable saline. The tourniquet was then inflated to 275mmHg. The knee was thoroughly irrigated with a pulse lavage and dried. On the back table, with the implants opened, the cement was mixed. 2 batches of antibiotic laden cement were prepared with vacuum assistance. After the cement was ready it was placed on to the back side of the tibial component. A small amount was placed onto the posterior flange of the femur. Cement was manual pressurized and impregnated into the cut surface of the tibia. The tibial component was then inserted into the cut surface and impacted into position. Excess cement was removed and the component was reimpacted. Again, excess cement was removed and our attention was then turned to the femur. The femoral cut surface was once again dried and cement was manually impacted into the cut surface. The femoral component was lined with the lug holes and impacted. Excess cement was removed. It was ensured to be down against the cut surface. The trial polyethylene was then inserted and the leg was brought out into full extension for the duration of the cement curing process, approximately 15min. Cement was lastly manually impacted into the cut surface of the patella and the patellar button was clamped into position and held. During this process attention was turned to the gutters of the knee and for all interfaces for any excess cement. While the cement was hardening, the knee was irrigated with Irrisept chlorhexadine solution. It was allowed to sit in the knee for 3 guillermina zofia. After the cement had finally cured, approximately 15min, the clamp was removed from the patella and the knee was taken through range of motion. A size 6mm polyethylene component provided the best range of motion and stability with less than 2mm gapping with medial and lateral stress and full extension without significant hyperextension. The patella was tracking with a no-thumbs technique. The trial poly was removed and once again the knee was checked for any loose, excess, or errant cement. The poly component was then inserted into position after cleaning and drying the tibial tray. The capsule was then reapproximated with a No. 1 Vicryl at multiple locations. The capsule was finally closed with a No. 2 Stratafix, barbed suture. The tourniquet was then released and the arthrotomy appeared watertight without significant bleeding. The second dosing of 1g TXA was started. Deep tissues were then reapproximated with 0 Vicryl and 2-0 Vicryl. The skin was closed with a running 3-0 Monocryl in a subcuticular fashion. This was reinforced with skin glue. A Mepilex silver dressing was applied along with a [id number] ANNAMARIE wrap. A CryoCuff was applied. Patrice was transferred to the hospital bed without difficulty an suffering no apparent complication. Patrice has a good prognosis. Physical therapy will start today and without restrictions, weight-bearing as tolerated. Aspirin 81mg BID will be used for DVT prophylaxis.
[2019-10-08] MEDS: ceFAZolin 1 GM/50 ML BAG IVPB (14:59)
--- NOTE | 2019-10-08 15:30 | PT.INIE ---
Date of service: 10/08/19 Time of Service: 15:30 PT Notes Visit Reasons: L KNEE DJD Physical Therapy Inpatient Initial Evaluation Date: 10/08/2019 Dulce Referring Doctor: PT Orders: PT CONSULT: Status post Ortho surgery. Status post left TKA. Precautions: Fall. Standard. WBAT on left LE. Patient Profile/Admitting Diagnosis: Patrice is a 74-year-old male with left knee degenerative joint disease and status post left total arthroplasty on postoperative day 0. S/P R TKA on 08/28/2019. PMHX: Medical History Diverticulosis (Acute) Esophageal reflux (Chronic) Hematoma of left thigh (Acute) Hemorrhoids (Acute) High cholesterol (Chronic) HTN (hypertension) (Chronic) Left knee DJD (Acute) Nicotine dependence (Acute) chewing tobacco Obesity (Chronic) Sensorineural hearing loss of both ears (Acute) Shortness of breath (Acute) PT. DENIES THIS Sleep apnea (Acute) DOES NOT USE CPAP Tinea of the body (Acute) PT. DENIES THIS Umbilical hernia (Acute) Surgical History History of colonoscopy (Chronic) History of fracture (Acute) right leg History of hernia repair (Chronic) Status post total right knee replacement (Acute 08/28/19) Social History/Home Situation: Patrice lives with in a private home with 4 steps to enter with one rail that leads onto a porch and another step up to the main entrance of the house. He was independent with all aspects of ADLs prior to surgery but has had increasing difficulty with performing all of them due to persistent knee pain. S/P R TKA on 08/28/2019. Equipment Owned/DME: Front wheeled walker Subjective: This left knee feels about the same as the right knee did the last time. Patient reports tightness in the left knee that subsided with ambulation activity. Patient denies any dizziness throughout PT consult. He hopes to go home today when cleared by MD. Objective: General Observation: IV in the L UE. TEDS on left leg. Jesus wraps on left LE. Cryo/Cuff on the left LE. Mental Status: Alert and oriented x 4 Pain: 3-4/10 in the right knee with ambulation activity ROM: Right Upper Extremity: Shoulder Flexion WFL. Shoulder abduction WFL. Elbow flexion WFL. Wrist flexion WFL. Opening and closing of hand WFL. Left Upper Extremity: Shoulder Flexion WFL. Shoulder abduction WFL. Elbow flexion WFL. Wrist flexion WFL. Opening and closing of hand WFL. Right Lower Extremity: Hip flexion WFL. Hip abduction WFL. Knee flexion 5 to 120 degrees. Knee extension -5 degrees. Ankle dorsiflexion WFL. Ankle plantarflexion WFL. Left Lower Extremity: Hip flexion WFL. Hip abduction WFL. Knee flexion 20 to 100 degrees. Knee extension -20 degrees. Ankle dorsiflexion WFL. Ankle plantarflexion WFL. Strength: Right Upper Extremity: Shoulder flexors 5/5. Shoulder abductors 5/5. Elbow flexors 5/5. Elbow extensors 5/5. Recreation Attendant Supervisor strong. Left Upper Extremity: Shoulder flexors 5/5. Shoulder abductors 5/5. Elbow flexors 5/5. Elbow extensors 5/5. Recreation Attendant Supervisor strong. Right Lower Extremity: Hip flexors 5/5. Hip abductors 5/5. Knee flexors 3-/5. Knee extensors 3-/5. Ankle dorsiflexors 5/5. Ankle plantarflexors 5/5. Left Lower Extremity:Hip flexors 5/5. Hip abductors 5/5. Knee flexors 3-/5. Knee extensors 3-/5. Ankle dorsiflexors 5/5. Ankle plantarflexors 5/5. Sensation: Intact as to pain and pressure on bilateral lower extremities. Bed Mobility/Transfers: Supine to sit modified independent Sit to stand standby assist requiring minimal verbal cueing for hand placement, requires use of front wheeled walker Stand to sit standby assist requiring minimal verbal cueing for hand placement Bed to chair standby assist requiring minimal verbal cueing for hand placement, requires use of front wheeled walker Chair to bed standby assist requiring minimal verbal cueing for hand placement, requires use of front wheeled walker Gait: Patient tolerated level surface ambulation of 150 feet x 2 using front wheeled walker with step through gait pattern with standby assist from PT. Patient also tolerated up-and-down six 4-inch steps and four 6-inch steps while holding onto bilateral rails requiring standby assist with step to gait pattern. Balance: Static Sitting: Normal Dynamic Sitting: Normal Static Standing: Fair Dynamic Standing: Fair Special Tests: Mobility Limitations Standardized Measure [facility] AM-PAC 6 clicks Basic Mobility Inpatient Short Form: Raw Score: 243 CMS Score: 11% deficit Informed Consent/Education: Patient instructed in purpose of PT consult and plan of care. Assessment: Patrice demonstrates functional mobility decline requiring the need for a front wheeled walker for all mobility ADL performance, minimal limitation in range of motion, and minimal impairment in strength resulting from postoperative status. Patrice this is a 74-year-old male male bilateral osteoarthritis status post left total knee arthroplasty on postoperative day 0. Patient presents with clinical signs and symptoms consistent with current/admitting diagnoses that have resulted to mobility limitations, gait instability, generalized weakness, and impairment of motor control as demonstrated by the following impairment level findings: 1. Decreased strength to left knee major muscle groups 2. Impaired standing balance 3. Limitation of joint range of motion in left knee Impairments are contributing to the following functional limitations: 1. Inability to safely ambulate without assistive device and physical assistance 2. Increase completion time for mobility ADL performance Patient is assessed as a [id number] moderate complexity based on the following: History: 74-year-old male with impairment level findings, functional limitations, and past medical history as indicated above Examination: Demonstrable impairment in strength, balance, and mobility level with underlying impairments and functional limitations as documented above Presentation:Evolving Decision Makin moderate complexity Goals: N/A. PT consult and 1 therapy session only. Plan of Care/Treatment Plan: N/A. PT consult and 1 therapy session only. DISCHARGE RECOMMENDATIONS: Home when medically cleared by orthopedic surgeon. OP PT services to reach highest functional mobility independence. PT intervention: Session today consisted of initial physical therapy evaluation and education/training on functional mobility performance using the front wheeled walker. TREATMENT CODE/TIME: 52234 x 25 minutes, 88178 x 17 minutes beginning at 15:30 PM. Thank you very much for this referral. Suni Rhoades PT, DPT, CLT [facility] [place], [place]
== END 2019-10-08 18:27 | disposition home or self-care (01) ==
LOC: PDS 10:44 → MS 13:47 → PDS 14:40
PROVIDERS: Admitting Provider Student in an Organized Health Care Education/Training Program; PCP Internal Medicine; Visit Provider Student in an Organized Health Care Education/Training Program
PROC: 0SRD0J9 Replacement of Left Knee Joint with Synthetic Substitute, Cemented, Open Approach (ICD-10-PCS; CPT 27447; principal; 2019-10-08 10:45)
DX: M17.12 Unilateral primary osteoarthritis, left knee (principal); M25.562 Pain in left knee; Z96.652 Presence of left artificial knee joint; G89.18 Other acute postprocedural pain; Z96.651 Presence of right artificial knee joint; K21.9 Gastro-esophageal reflux disease without esophagitis; G47.33 Obstructive sleep apnea (adult) (pediatric); I10 Essential (primary) hypertension; F17.220 Nicotine dependence, chewing tobacco, uncomplicated
CPT/HCPCS: 27447; C1776; 76942; 97162; 97530; NC; G0378; J0690; J1885; J2001; J2250; J2405; J2704; J3010

== ENCOUNTER 2019-10-28 09:26 | Outpatient (CLI) | payer MEDICARE, OTHER, SELFPAY ==
--- NOTE | 2019-10-28 08:45 | DI.RAD_ITS ---
EXAM: XR KNEE LT 1V INDICATION: s/p L TKA. COMPARISON: CR XR KNEE LT 2V AP,LAT from 08/12/2019 CR XR STANDING ALIGNMENT from 09/19/2019 CR XR STANDING ALIGNMENT from 10/28/2019 TECHNIQUE: 2D digital imaging was performed. FINDINGS: There has been no change in the left total knee prosthesis. No abnormal bony lucencies are seen. DATA REPOSITORY: RADIATION DOSE DELIVERED:
--- NOTE | 2019-10-28 08:45 | DI.RAD_ITS ---
EXAM: XR STANDING ALIGNMENT CLINICAL HISTORY: s/p L TKA. TECHNIQUE: 2D digital imaging was performed. COMPARISON: CR XR STANDING ALIGNMENT from 09/19/2019 FINDINGS: Standing AP views were performed from the pelvis through the ankles. The patient is status post bila teral total knee prostheses. Old healed fracture deformities of the upper right tibia and fibula are again noted. There are mild degenerative changes of both hips and ankles. DATA REPOSITORY: RADIATION DOSE DELIVERED:
== END 2019-10-28 09:46 ==
PROVIDERS: PCP Internal Medicine; Referring Provider Internal Medicine; Visit Provider Student in an Organized Health Care Education/Training Program
DX: Z96.652 Presence of left artificial knee joint (principal); M16.0 Bilateral primary osteoarthritis of hip
CPT/HCPCS: 73560; 77073

== ENCOUNTER → 2019-11-25 08:22 | Outpatient (BNVA) | payer MEDICARE, OTHER, SELFPAY | PROVIDERS: PCP Internal Medicine; Referring Provider Internal Medicine; Visit Provider Student in an Organized Health Care Education/Training Program | DX: Z96.652 Presence of left artificial knee joint (principal); Z47.1 Aftercare following joint replacement surgery; Z96.651 Presence of right artificial knee joint ==

== ENCOUNTER → 2020-01-06 08:44 | Outpatient (BNVA) | payer MEDICARE, OTHER, SELFPAY | PROVIDERS: PCP Internal Medicine; Referring Provider Internal Medicine; Visit Provider Student in an Organized Health Care Education/Training Program | DX: Z96.652 Presence of left artificial knee joint (principal); Z47.1 Aftercare following joint replacement surgery; I10 Essential (primary) hypertension ==

== ENCOUNTER 2020-07-24 14:32 | Emergency (ER) | payer MEDICARE, OTHER, SELFPAY ==
[2020-07-24] VITALS (17 sets, daily range): BP systolic 103–136; BP diastolic 68–85; PULSE 67–104; RESP 16–28; TEMP 37.5; O2SAT 92–96
--- NOTE | 2020-07-24 14:45 | DI.RAD_ITS ---
Exam(s) XR PORTABLE CHEST AP EXAM: XR PORTABLE CHEST AP CLINICAL HISTORY: fatigue. TECHNIQUE: 2D digital imaging was performed. COMPARISON: No exams were available for comparison FINDINGS: Chest leads in place. Heart size is slightly prominent. The mediastinum is not widened. Mild increased lung markings. Subtle nodular infiltrate lateral right lung. No pleural effusions. No pneumothorax. IMPRESSION: Subtle infiltrate lateral right lung. No pleural effusions. Cardiomegaly. No pulmonary edema. DATA REPOSITORY: RADIATION DOSE DELIVERED: All CT scans at this facility use at least one of these dose optimization techniques: automated exposure control; mA and/or kV adjustment per patient size (includes targeted e xams where dose is matched to clinical indication); or iterative reconstruction.
--- NOTE | 2020-07-24 14:45 | RT.EKG_ITS ---
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 questionab le Q-wave in aVF. Unremarkable otherwise.
--- NOTE | 2020-07-24 15:00 | ED.GENADUL_ITS ---
Discharge Plan Disposition Patient Disposition: HOME Condition: Good Discharge Details Clinical Impression: COVID-19, Pneumonitis, Elevated LFTs Primary Care Provider: Freddie Savage ED Provider: Kalyani Bailey Home Meds and New Rx's Prescriptions: New doxycycline hyclate 100 mg tablet 100 mg PO BID Qty: 14 RF: 0 No Action gemfibrozil 600 mg tablet 600 mg PO BID RF: 0 hydrochlorothiazide 25 mg tablet 25 mg PO DAILY RF: 0 losartan 100 mg tablet 100 mg PO DAILY RF: 0 terbinafine HCl [Athlete's Foot (terbinafine)] 1 % cream 1 applic TP BID RF: 0 multivitamin,tx-minerals Tablet 1 tab PO DAILY RF: 0 aspirin 81 mg tablet,delayed release (DR/EC) 81 mg PO DAILY RF: 0 acetaminophen 500 mg tablet 1,000 mg PO Q8H PRN (Reason: pain) Qty: 90 RF: 3 naproxen 500 mg tablet 500 mg PO BID PRNQty: 60 RF: 0 Discharge Instructions Additional Instructions: Please follow-up with your primary care physician on Monday Please have your liver enzymes rechecked by your primary care physician in 2 weeks Take antibiotic as prescribed Yogurt daily while on the antibiotic Temporarily discontinue your multivitamin while on this antibiotic You will likely continue to improve with time progressive, make sure you stay hydrated and continue to rest Please return for shortness of breath, chest pain, weakness, dizziness, or with any new or progressive symptoms it sounds like you are able to receive the Covid vaccine 14 days after onset of your symptoms, speak to your provider regarding this Discharge Data Discharge Date/Time-TO BE ENTERED AT DEPARTURE: 07/24/20 16:35 Medical Decision Making <GABRIEL Dai - Last Filed: 07/25/20 23:05> Patient had elevated LFTs, no prior to compare, likely Covid related, no abdominal pain Patient will follow up with her primary care physician for repeat LFTs He has no hypoxia, no persistent tachycardia, he is in no acute distress and ambulatory sat is 96% on room air He does have evidence of infiltrate consistent with exam, she likely has Covid pneumonitis however given his persistent symptoms, I will treat him for possible secondary bacterial infection with doxycycline Patient is stable for discharge home, his curb 65 score is low risk, 1 He is given very low threshold to return should he have new or worsening complaints He is discharged home in stable condition with stable vitals, his EKG has been read by my attending physician, please see documentation, I did review the EKG findings He has no current shortness of breath or chest pain, my suspicion for pulmonary embolism is quite low He is also not exhibiting signs or symptoms of sepsis, I think the patient is stable for discharge home No electrolyte abnormalities, urinalysis clear Differential Diagnosis Differential Diagnosis: COVID-19, pneumonia, electrolyte abnormality, urinary tract infection Medical Records Medical records reviewed: Yes I reviewed the patient's medical records. Lab Data Lab results reviewed: Yes I reviewed the patient's lab results. ECG Data Prior ECG tracings: available for review <Omar Owen DO - Last Filed: 07/24/20 21:20> 75-year-old male presents with fatigue for the last few days after COVID-19. No current chest pain. No significant shortness of breath. No history of cardiac disease. EKG unremarkable. 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 Agree with assessment and plan. Patient stable. Work-up negative, chest x-ray does show evidence of questionable pneumonia. Will treat with doxycycline. Patient stable for discharge I independently performed a history and physical examination of the patient and discussed the management with the midlevel provider. I agree with the current plan of management at the time of signing. EKG 15: 19 Sinus rhythm, no significant ST elevation or depression, no evidence of STEMI. questionable Q-wave in aVF. Unremarkable otherwise. HPI <GABRIEL Dai - Last Filed: 07/25/20 23:05> General Mode of arrival: ambulatory . Date/Time Provider Initiated Documentation: 07/24/20 14:32 . Limitations to Documentation: no limitations . Information obtained by: patient . HPI Narrative: This 75-year-old male with history of COVID-19, diverticulosis, shortness of breath, presents with report of persistent fatigue. He states he was diagnosed approximately 14 days ago. He denies any shortness of breath or chest pain. He has had some mild intermittent nausea. Denies vomiting or diarrhea. Denies any urinary symptoms. denies rashes or lesions/tick bites. He denies any persistent fever or chills. He states that he mostly came in today because his told him to Related Data Home Medications Medication Instructions Recorded Confirmed gemfibrozil 600 mg tablet 600 mg PO BID 10/16/18 07/24/20 hydrochlorothiazide 25 mg tablet 25 mg PO DAILY 10/16/18 07/24/20 losartan 100 mg tablet 100 mg PO DAILY 10/16/18 07/24/20 multivitamin,tx-minerals 1 tab PO DAILY 10/16/18 07/24/20 terbinafine HCl 1 % topical cream 1 applic TP BID 10/16/18 07/24/20 acetaminophen 1,000 mg PO Q8H PRN #90 tab 08/28/19 07/24/20 naproxen 500 mg PO BID PRN #60 tab 08/28/19 07/24/20 aspirin 81 mg tablet,delayed 81 mg PO DAILY tab 11/25/19 07/24/20 release doxycycline hyclate 100 mg PO BID #14 tab 07/24/20 Previous Rx's Medication Instructions Recorded acetaminophen 1,000 mg PO Q8H PRN #90 tab 08/28/19 naproxen 500 mg PO BID PRN #60 tab 08/28/19 doxycycline hyclate 100 mg PO BID #14 tab 07/24/20 Allergies Allergy/AdvReac Type Severity Reaction Status Date / Time bee venom protein (honey bee) Allergy Mild Dizziness/L Verified 07/24/20 14:43 ightheade General Stated Complaint: GenMedical ASHWIN: 3 Review of Systems <GABRIEL Dai - Last Filed: 07/25/20 23:05> Narrative: Review of systems obtained x7 aside from where indicated in HPI [facility] <GABRIEL Dai - Last Filed: 07/25/20 23:05> Medical History (Updated 07/24/20 @ 16:21 by GABRIEL Dai) Diverticulosis Esophageal reflux Hematoma of left thigh Hemorrhoids High cholesterol HTN (hypertension) Left knee DJD Nicotine dependence chewing tobacco Obesity Sensorineural hearing loss of both ears Shortness of breath PT. DENIES THIS Sleep apnea DOES NOT USE CPAP Tinea of the body PT. 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/19) Social History Smoking/Tobacco Use Status: Current every day Tobacco Type: smokeless tobacco Smoking risk assessment performed?: Yes Alcohol Intake: current Alcohol Intake frequency: a few times a week Alcohol type: beer Drug use: Never Substance use type: does not use Current gender identity: male Do you feel safe at home: Yes Do you feel safe in your relationship?: Yes Exam <GABRIEL Dai - Last Filed: 07/25/20 23:05> Const General: cooperative, healthy appearing, comfortable, no acute distress and not ill appearing HENMT Other: Moist mucous membranes Neck Other: No meningismus this is obviously Chest Chest: normal inspection of the chest Resp Effort & Inspection: normal respiratory effort Cardio Rate: regular rate Rhythm: regular rhythm Skin General skin exam: no rashes or lesions noted Neuro General: patient alert and patient oriented x3 Extrem Other: No calf tenderness or swelling appreciated Course <GABRIEL Dai - Last Filed: 07/25/20 23:05> Vital Signs Vital signs: Vital Signs Temperature 37.5 C 07/24/20 14:38 Pulse 104 H 07/24/20 14:38 Respiratory Rate 18 07/24/20 14:38 Blood Pressure 103/70 07/24/20 14:38 Pulse Oximetry 96 07/24/20 14:38 Temperature 37.5 C 07/24/20 14:38 Temperature Source Temporal Artery Scan 07/24/20 14:38 Pulse 104 H 07/24/20 14:38 Respiratory Rate 18 07/24/20 14:38 Respiratory Effort Non-Labored 07/24/20 14:46 Blood Pressure 103/70 07/24/20 14:38 Pulse Oximetry 96 07/24/20 14:38 Oxygen Delivery Method Room Air 07/24/20 14:38 Oxygen Flow Rate 0 07/24/20 14:38
[2020-07-24] MEDS: Normal Saline 1,000 ML 1000 ML IV (15:06)
[2020-07-24 15:18] LABS: Abs Immature Grans 0.02 10^3/uL (0.0-0.06); Absolute Basophil Count 0.02 10^3/uL (0.0-0.2); Absolute Eosinophil Count 0.02 10^3/uL (0.0-0.7); Absolute Monocyte Count 0.46 10^3/uL (0.1-0.8); Absolute Neutrophil Count 3.27 10^3/uL (1.2-6.7); Basophils % 0.4; Eosinophils % 0.4; HCT 39.9 % (40.0-50.0); Immature Grans % 0.4; MCH 31.5 pg (27.0-33.0); MCHC 35.1 % (32.0-36.0); MCV 89.9 fL (80-95); MPV 10.5 fL (8.0-11.0); Monocytes % 9.2; Neutrophils % 65.6; Nucleated RBC 0 %; Platelet Count 157 10^3/uL (130-400); RBC 4.44 10^6/uL (4.36-5.78); RDW 13.2 % (11.8-14.1); RDW-SD 43.4 fL; WBC 4.99 10^3/uL (4.4-10.8)
[2020-07-24 15:32] LABS: ALT 107 U/L (16-63); AST 135 U/L (15-37); Albumin 3.7 g/dL (3.4-5.0); Alkaline Phosphatase 99 U/L (46-116); Anion Gap 8.4 mmol/L (3-11); BUN 18 mg/dL (7-18); Bilirubin, Total 0.4 mg/dL (0.2-1.0); CO2 29.6 mmol/L (21.0-32.0); CREATININE 1.2 mg/dL (0.70-1.30); Calcium 8.9 mg/dL (8.5-10.1); Chloride 103 mmol/L (98-107); Estimated GFR 59.18 (mL/min/1.73m2); Glucose 137 mg/dL (74-106); Potassium 3.5 mmol/L (3.5-5.1); Sodium 141 mmol/L (136-145); Total Protein 7.5 g/dL (6.4-8.2)
[2020-07-24 15:41] LABS: Bilirubin Negative (Negative); Blood Negative (Negative); Clarity Clear (Clear); Glucose Negative (Negative); Ketones Trace mg/dL (Negative); Leukocyte Esterase Negative (Negative); Nitrite Negative (Negative); Specific Gravity 1.025 (1.005-1.025)
[2020-07-24 15:50] LABS: Bacteria Negative HPF (Negative); C & S Indicated? No; Casts 0-2 Hyaline LPF (Negative); Crystals Negative HPF (Negative); Epithelial Cells Rare HPF (Negative); Mucus Trace (Negative); RBC 0-2 HPF (0-2); WBC 0-2 HPF (0-5)
[2020-07-24 15:53] LABS: Troponin I < 0.05 ng/mL (<0.06)
--- NOTE | 2020-07-24 16:29 | DI.VRAD_ITS ---
PROCEDURE INFORMATION: Exam: XR Chest Exam date and time: 07/24/2020 3:00 PM Age: 75 years old Clinical indication: Patient HX: Fatigue; Covid+ 2 weeks ago TECHNIQUE: Imaging protocol: XR of the chest. Views: 1 view. COMPARISON: No relevant prior studies available. FINDINGS: Lungs: Patchy bilateral lower lobe infiltrates of concern for ground-glass lesions seen with COVID-19. Pleural spaces: Unremarkable. No pleural effusion. No pneumothorax. Heart/Mediastinum: Cardiomegaly. Bones/joints: Degenerative changes of the right and left acromioclavicular joint. IMPRESSION: 1. Bilateral patchy infiltrates of concern for COVID-19. 2. Cardiomegaly. Dictated and Authenticated by: Joya Samuels MD. Ordering:ASUNCION Auguste MD
== END 2020-07-24 16:35 | disposition home or self-care (01) ==
PROVIDERS: Emergency Provider Physician Assistant; PCP Internal Medicine
DX: U07.1 COVID-19 (principal); J12.82 Pneumonia due to coronavirus disease 2019; R79.89 Other specified abnormal findings of blood chemistry
CPT/HCPCS: 80053; 93005; 96360; 99284; 71045; 81003; 81015; 84484; 85025; 93010

== ENCOUNTER 2020-09-28 08:46 | Outpatient (CLI) | payer MEDICARE, OTHER, SELFPAY ==
--- NOTE | 2020-09-28 08:00 | DI.RAD_ITS ---
Exam(s) XR KNEE LT 2V AP,LAT EXAM: XR KNEE LT 2V AP,LAT CLINICAL HISTORY: annual f/u L TKA. TECHNIQUE: 2D digital imaging was performed. COMPARISON: CR XR KNEE LT 1V from 10/28/2019 CR XR STANDING ALIGNMENT from 10/28/2019 CR XR STANDING ALIGNMENT from 10/28/2019 FINDINGS: AP and lateral views reveal stable position alignment of the components of the left prosthesis. No f racture evident. Subtle area of lucency subjacent to the prosthesis at the lateral tibial plateau le julio cesar is again noted. Cannot exclude loosening. Femoral component unremarkable. Sigmoid IMPRESSION: DATA REPOSITORY: RADIATION DOSE DELIVERED:
--- NOTE | 2020-09-28 08:00 | DI.RAD_ITS ---
Exam(s) XR KNEE RT 2V AP,LAT EXAM: XR KNEE RT 2V AP,LAT CLINICAL HISTORY: ANNUAL F/U R TKA. TECHNIQUE: 2D digital imaging was performed. COMPARISON: CR XR KNEE RT 1V from 09/19/2019 CR XR KNEE RT 1V from 09/19/2019 CR XR KNEE LT 1V from 10/28/2019 CR XR KNEE LT 1V from 10/28/2019 CR XR KNEE LT 2V AP,LAT from 09/28/2020 FINDINGS: Compared to 10/28/2019 femoral prosthesis component appears. However, linear lucency subjacent to th e tibial plateau components noted. Correlation any clinical symptomatology of loosening recommended. There is no radiographic evidence of osteomyelitis IMPRESSION: DATA REPOSITORY: RADIATION DOSE DELIVERED:
== END 2020-09-28 08:47 | disposition home or self-care (01) ==
LOC: DIORS 08:46
PROVIDERS: PCP Internal Medicine; Referring Provider Internal Medicine; Visit Provider Student in an Organized Health Care Education/Training Program
DX: Z96.651 Presence of right artificial knee joint (principal); Z47.1 Aftercare following joint replacement surgery; Z96.652 Presence of left artificial knee joint
CPT/HCPCS: 99213; 73560

== ENCOUNTER 2021-09-27 13:48 | Outpatient (CLI) | payer MEDICARE, OTHER, SELFPAY ==
--- NOTE | 2021-09-27 07:45 | DI.RAD_ITS ---
Exam(s) XR KNEE RT 2V AP,LAT EXAM: XR KNEE RT 2V AP,LAT INDICATION: ANNUAL F/U R TKA. COMPARISON: CR XR KNEE RT 2V AP,LAT from 09/28/2020 CR XR KNEE LT 2V AP,LAT from 09/27/2021 TECHNIQUE: 2D digital imaging was performed. Two views. FINDINGS: There has been no change in the right knee prosthesis or appearance of the surrounding bone. DATA REPOSITORY: RADIATION DOSE DELIVERED:
--- NOTE | 2021-09-27 07:45 | DI.RAD_ITS ---
Exam(s) XR KNEE LT 2V AP,LAT EXAM: XR KNEE LT 2V AP,LAT INDICATION: annual f/u L TKA. COMPARISON: CR XR KNEE LT 2V AP,LAT from 09/28/2020 CR XR KNEE RT 2V AP,LAT from 09/28/2020 TECHNIQUE: 2D digital imaging was performed. Two views. FINDINGS: There has been no change in the total knee prosthesis. Areas of lucency adjacent to the tibial tray appear stable. DATA REPOSITORY: RADIATION DOSE DELIVERED:
== END 2021-09-27 13:49 | disposition home or self-care (01) ==
LOC: DIORS 13:49
PROVIDERS: PCP Internal Medicine; Visit Provider Student in an Organized Health Care Education/Training Program
DX: Z96.651 Presence of right artificial knee joint (principal); Z96.652 Presence of left artificial knee joint
CPT/HCPCS: 99213; 73560

== ENCOUNTER 2023-08-25 10:13 | Day surgery (SDC) | payer MEDICARE, OTHER, SELFPAY ==
[2023-08-25 10:53] VITALS: BP 139/110; PULSE 85; RESP 16; TEMP 36.4; O2SAT 96
--- NOTE | 2023-08-25 10:58 | ANES.PREOP_ITS ---
General Info Date of Service Date Performed: 08/25/23 Height: 5 ft 10 in Weight: 127.006 kg Body Mass Index (BMI): 40.1 Surgical Procedure: Operation Date: 08/25/23 12:10 Proposed Procedure Side Surgeon p Cataract Extraction with IOL Implant Right Sami Coats MD Meds Allergies and Home Medications Allergies Allergy/AdvReac Type Severity Reaction Status Date / Time bee venom protein (honey bee) Allergy Mild Dizziness/L Verified 08/25/23 11:12 ightheade Home Medication Medication Instructions Recorded gemfibrozil 600 mg tablet 600 mg PO BID 10/16/18 hydrochlorothiazide 25 mg tablet 25 mg PO DAILY 10/16/18 losartan 100 mg tablet 100 mg PO DAILY 10/16/18 multivitamin,tx-minerals 1 tab PO DAILY 10/16/18 acetaminophen 500 mg tablet 1,000 mg (2 x 500 mg) PO Q8H PRN 08/28/19 pain #90 tabs naproxen 500 mg tablet 500 mg PO BID PRN #60 tabs 08/28/19 aspirin 81 mg tablet,delayed 81 mg PO DAILY 11/25/19 release cholecalciferol (vitamin D3) 25 25 mcg PO DAILY 09/28/20 mcg (1,000 unit) capsule Current Visit Medications: Current Medications Generic Name Dose Route Start Last Admin Trade Name Freq PRN Reason Stop Dose Admin Acetaminophen 1,000 mg 08/25/23 06:00 Acetaminophen 500 Mg Tab PO 09/24/23 05:59 Q4H PRN PRN Balanced Salt Solution 500 ml 08/25/23 06:00 Balanced Salt Soln.-Plus 500 Ml Bag OP 09/24/23 05:59 DIRECTED [facility] Miscellaneous Medication 0 ml 08/25/23 06:00 Prednisolone 1%, Moxifloxacin 0.5%, Bromfenac 0.09% 5ml Btl OD 09/24/23 05:59 DIRECTED ALFREDO Miscellaneous Medication 0 ml 08/25/23 06:00 Tropicam./Phenyleph. (1/2.5%) 10 Ml Btl OD 09/24/23 05:59 DIRECTED ALFREDO Tetracaine HCl 0 ml 08/25/23 06:00 Tetracaine 0.5% 4 Ml Btl OD 09/24/23 05:59 DIRECTED ALFREDO PFSH Active Problems Active Problems: Problem Status Onset Code Posterior subcapsular age-related cataract, right eye H25.041 Cortical age-related cataract, right eye H25.011 Nuclear age-related cataract, right eye H25.11 COVID-19 U07.1 Pneumonitis J18.9 Elevated LFTs R79.89 History of fracture Z87.81 Left knee DJD M17.12 Shortness of breath R06.02 Hematoma of left thigh S70.12XA Tinea of the body B35.4 Diverticulosis K57.90 Hemorrhoids K64.9 Nicotine dependence F17.200 Obesity E66.9 Sensorineural hearing loss of both ears H90.3 Sleep apnea G47.30 Umbilical hernia K42.9 Esophageal reflux K21.9 Medical History Medical History (Updated 08/24/23 @ 19:24 by Sami Coats MD) High cholesterol HTN (hypertension) Surgical History Surgical History 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) History of hernia repair History of colonoscopy Status post total right knee replacement (08/28/19) Tobacco Smoking/Tobacco Use Status: Former Tobacco Use Alcohol Alcohol Intake: current Alcohol intake frequency: a few times a week Alcohol type: beer Substance Use Substance use: Never Substance use type: does not use Vital Signs and Lab Results Vital Signs Comment Vital Signs Comment:: Temp Pulse Resp BP Pulse Ox 36.4 C L 85 16 139/110 H 96 08/25/23 10:53 08/25/23 10:53 08/25/23 10:53 08/25/23 10:53 08/25/23 10:53 Lab Results Blood Type / Crossmatch: No Data to Display Complete Blood Count: No Data to Display Complete Metabolic Panel: No Data to Display Liver Function Panel: No Data to Display Coagulation Panel: No Data to Display Cardiac Panel: No Data to Display Arterial Blood Gas: No Data to Display Venous Blood Gas: No Data to Display Pancreas Panel: No Data to Display Thyroid Panel: No Data to Display Infectious Disease: No Data to Display Blood Cultures: No Data to Display Toxicology Panel: No Data to Display Imaging and Studies Imaging and Studies Study information below may be from another EMR and interpreted by another provider. Please see original notes in EMR for more complete details. 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 questionable Q-wave in aVF. Unremarkable otherwise. 07/24/20 Anesthesia Assessment and Plan Anesthesia History Personal History: PONV Family History: No Family History of Anesthesia Complications Exercise Tolerance Exercise Tolerance: Metabolic Equivalents<4 Pertinent Negatives Pertinent Negatives: No Major Cardiovascular Symptoms or Complaints and No Major Pulmonary Symptoms or Complaints (bit of a cold per patient, lungs clear) Cardiac & Pulmonary Exam Cardiac Exam: Normal S1/S2 Heart Sounds Pulmonary Exam: Clear Bilateral Breath Sounds Implantable Cardiac Device Does patient have a Pacemaker or an ICD?: No Airway Exam Known Difficult Airway: No Mallampati Class: 1 Mouth Opening: Normal (> 3cm) Thyromental Distance: Greater than 3 cm Neck Range of Motion: Full ROM Neck Circumference: Normal Teeth Condition: Edentulous ASA Classification ASA Score: ASA 3 Emergency Case?: No NPO Status NPO Status: NPO Clears >2 hours, Solids >8 hours Anesthesia Plan Resuscitation Status: Full Code Anesthesia Technique: MAC Anesthesia Airway Planned: Natural Airway Monitors Used: Standard Monitors
[2023-08-25 11:01] VITALS: BMI 40.1
[2023-08-25] MEDS: Lidocaine 1% Pres-Free 5 ML VIAL (12:14)
[2023-08-25] MEDS: Duovisc Viscoelastic System EACH 1 EACH (12:14)
[2023-08-25] MEDS: Povidone-Iodine Ophth 30 ML BTL (12:16)
[2023-08-25] MEDS: Balanced Salt Soln.-PLUS 500 ML BAG OP (12:17)
[2023-08-25] MEDS: Trypan Blue 0.06% 0.5 ML SYR (12:17)
[2023-08-25] MEDS: Tetracaine 0.5% 4 ML BTL OD (12:18)
--- NOTE | 2023-08-25 12:41 | PDOC.DSDIS_ITS ---
Date of service: 08/25/23 Time of Service: 12:41 Discharge Plan Disposition Patient Disposition: Home Discharge Details Attending Provider: Sami Coats Primary Care Provider: [facility] Home Meds and New Rx's Prescriptions: No Action gemfibrozil 600 mg tablet 600 mg PO BID hydrochlorothiazide 25 mg tablet 25 mg PO DAILY losartan 100 mg tablet 100 mg PO DAILY multivitamin,tx-minerals Tablet 1 tab PO DAILY aspirin 81 mg tablet,delayed release (DR/EC) 81 mg PO DAILY cholecalciferol (vitamin D3) 25 mcg (1,000 unit) capsule 25 mcg PO DAILY acetaminophen 500 mg tablet 1,000 mg PO Q8H PRN (Reason: pain) Qty: 90 3RF naproxen 500 mg tablet 500 mg PO BID PRNQty: 60 0RF Discharge Instructions Stand Alone Forms: D[facility] Post-Op Cataract, Lalit Welch (DSU) Discharge Orders Discharge Orders: Discharge Order (Routine); Ordered 08/25/23 Ordered By: Sami Coats DS: Diagnosis Discharge Diagnosis (1) Posterior subcapsular age-related cataract, right eye: Status: Resolved (2) Cortical age-related cataract, right eye: Status: Resolved (3) Nuclear age-related cataract, right eye: Status: Resolved
--- NOTE | 2023-08-25 12:41 | W.PM.OP ---
Date of service: 08/25/23 Time of Service: 12:41 Operative Note Operative Note DATE OF PROCEDURE: 08/25/23 PRE-OP DIAGNOSIS: Dense nuclear/cortical/posterior subcapsular cataract, right eye POST-OP DIAGNOSIS: same PROCEDURE: Cataract extraction using phacoemulsification with intraocular lens implant, right eye SURGEON: Sami Coats ANESTHESIA TYPE: Local By Surgeon and MAC Refer to Anesthesia Record ESTIMATED BLOOD LOSS: 0 PATHOLOGY: none sent COMPLICATIONS: None Patient was transported to: same day Patient's condition: stable Implants: Kota Clareon [id number] Indications: Progressive decreased vision due to cataract, right eye Procedure Description: CATARACT SURGERY OPERATIVE REPORT PREOPERATIVE DIAGNOSIS: Dense nuclear/cortical/posterior subcapsular cataract, right eye POSTOPERATIVE DIAGNOSIS: Same OPERATION: Cataract extraction using phacoemulsification with posterior chamber intraocular lens implant, right eye. IOL: IOL Director Credit Risk/Model: Kota Clareon [id number] IOL Power: + 19.0 diopters IOL Serial Number: [id number] Optic Diameter: 6.0mm Haptic/Overall Diameter: 13.0mm PHACO INFO: Kota TabbedOuturion Vision System with OZil and Active Fluidics Cumulative Dispersed Energy (CDE): 18.45 seconds SURGEON: Sami Coats MD, LIBAN ANESTHESIA: Monitored Anesthesia Care (MAC), with local sub-tenon's anesthetic infiltration COMPLICATIONS: None SPECIMENS: None INDICATIONS FOR PROCEDURE: The patient is a 78-year-old male with history of diminished visual acuity in his right eye secondary to the development of nuclear/cortical/posterior subcapsular cataract. He is significantly symptomatic that he desires cataract surgery and attempt to improve and maximize his vision. The option of cataract surgery was offered to the patient and he wished to proceed. See office notes for detailed information. PROCEDURE: The correct surgical eye was identified and marked as the right eye and the pupil was dilated in the preoperative area using mydriatics and cycloplegics. The dilated pupil size was 6.0 mm., The patient elected to proceed without oral sedation. The patient was brought to the operating room where cardiopulmonary monitoring was instituted and surgical time-out was performed, confirming the correct operative eye and IOL power. Topical anesthesia was administered and ophthalmic povidone-iodine 5% was instilled into the conjunctival fornices. The paulo-ocular area was prepped with Betadine 10% solution and draped in the usual sterile fashion for intraocular surgery, including an aperture drape. A Tegaderm transparent film dressing was cut in half and used to cover the lashes and lid margins. Care was taken to sequester the lashes and lid margins under the Tegaderm dressing. A lid speculum was placed between the lids of the operative eye and the Kota LuxOR Revalia operating microscope was maneuvered into position. Dhaval scissors were then used to make a conjunctival buttonhole approximately 6mm posterior to the limbus in the inferonasal quadrant. Blunt dissection was carried out to expose bare sclera, and a blunt-tipped sub-tenon?s anesthesia cannula was introduced and passed posteriorly along the globe where non-preserved plain lidocaine was injected into posterior sub-Tenon?s space. A sideport knife was used to make a paracentesis port. VisionBlue was injected into the anterior chamber and allowed to sit for 30 seconds. Intraocular phenylephrine/lidocaine was injected into the anterior chamber. The anterior chamber was then filled with viscoelastic. A keratome knife was used to construct a two--plane clear corneal tunnel extending 2.0mm into clear cornea. A flap was raised on the anterior capsule and capsulorhexis forceps were used to complete a continuous curvilinear capsulorhexis of 5.0 mm. Balanced salt solution was then used to perform cortical cleaving hydrodissection and nuclear hydrodelineation until the lens could be freely rotated within the capsular bag. The lens nucleus was then disassembled and removed within the capsular bag and iris plane using phacoemulsification. Residual cortical material was removed using the I/A handpiece. The posterior capsule was carefully polished to remove as much residual lens epithelial cells as safely possible. The capsular bag was then inflated and the anterior chamber deepened with cohesive viscoelastic. The lens implant described above was inserted into the capsular bag using the Kota Autonome Injector. A Kuglen hook was used to dial the IOL into position. Residual viscoelastic was then removed first from posterior to the IOL, then from the anterior chamber using the I/A handpiece. The lens implant was noted to center nicely within the capsular bag. The incisions were stromally hydrated, and the anterior chamber was reformed using BSS. Then 0.5cc of moxifloxacin 1.0mg/ml were injected into the capsular bag and anterior chamber. The incisions were checked with a Weck spear and found to be secure. Several drops of ophthalmic povidone-iodine 5% were then applied to the eye followed by two drops of combination steroid/NSAID/antibiotic solution. The drapes were removed and a clear plastic protective eye shield was placed over the eye. The patient was then returned to Same Day Surgery in stable condition.
[2023-08-25 12:42] VITALS: BP 137/88; PULSE 63; RESP 16; TEMP 36.4; O2SAT 97
--- NOTE | 2023-08-25 13:02 | W.ANESPOSTOP ---
Postoperative Evaluation Date, Time and Location Date Performed: 08/25/23 Time Performed: 12:46 Patient Location: Day Surgery Unit Vital Signs Most Recent Imported Vital Signs: Most Recent Vital Signs Temp Pulse Resp BP Pulse Ox 36.4 C L 63 16 137/88 97 08/25/23 12:42 08/25/23 12:42 08/25/23 12:42 08/25/23 12:42 08/25/23 12:42 Pain Score Most Recent Pain Score: Most Recent Pain Score Pain Level 0 08/25/23 12:42 Assessment Mental Status: Awake (Alert & Oriented to Patient Baseline) Airway and Respiratory Function: Patent airway with normal (patient baseline) respiratory exam Cardiovascular Function: Hemodynamically Stable Hydration Status: Adequately Hydrated Nausea & Vomiting: No Nausea or Vomiting Pain: Pt. Denies Any Pain Peripheral Nerve Block: Patient did not receive a nerve block
== END 2023-08-25 13:04 | disposition home or self-care (01) ==
LOC: SUR 10:14
PROVIDERS: Visit Provider Ophthalmology
PROC: (CPT 66984; principal; 2023-08-25 12:00)
DX: H25.041 Posterior subcapsular polar age-related cataract, right eye (principal); H25.011 Cortical age-related cataract, right eye; H25.11 Age-related nuclear cataract, right eye
CPT/HCPCS: 66984; 00123; V2632; J2003

== ENCOUNTER 2023-09-08 06:54 | Day surgery (SDC) | payer MEDICARE, OTHER, SELFPAY ==
--- NOTE | 2023-09-08 06:52 | ANES.PREOP_ITS ---
General Info Date of Service Date Performed: 09/08/23 Height: 5 ft 10 in Weight: 127.006 kg Body Mass Index (BMI): 40.1 Surgical Procedure: Operation Date: 09/08/23 08:25 Proposed Procedure Side Surgeon p Cataract Extraction with IOL Implant Right Sami Coats MD Meds Allergies and Home Medications Allergies Allergy/AdvReac Type Severity Reaction Status Date / Time bee venom protein (honey bee) Allergy Mild Dizziness/L Verified 09/08/23 07:07 ightheade Home Medication Medication Instructions Recorded gemfibrozil 600 mg tablet 600 mg PO BID 10/16/18 hydrochlorothiazide 25 mg tablet 25 mg PO DAILY 10/16/18 losartan 100 mg tablet 100 mg PO DAILY 10/16/18 multivitamin,tx-minerals 1 tab PO DAILY 10/16/18 acetaminophen 500 mg tablet 1,000 mg (2 x 500 mg) PO Q8H PRN 08/28/19 pain #90 tabs naproxen 500 mg tablet 500 mg PO BID PRN #60 tabs 08/28/19 aspirin 81 mg tablet,delayed 81 mg PO DAILY 11/25/19 release cholecalciferol (vitamin D3) 25 25 mcg PO DAILY 09/28/20 mcg (1,000 unit) capsule Current Visit Medications: Current Medications Generic Name Dose Route Start Last Admin Trade Name Freq PRN Reason Stop Dose Admin Acetaminophen 1,000 mg 09/08/23 06:00 Acetaminophen 500 Mg Tab PO 10/08/23 05:59 Q4H PRN PRN Balanced Salt Solution 500 ml 09/08/23 06:00 Balanced Salt Soln.-Plus 500 Ml Bag OP 10/08/23 05:59 DIRECTED [facility] Miscellaneous Medication 0 ml 09/08/23 06:00 Prednisolone 1%, Moxifloxacin 0.5%, Bromfenac 0.09% 5ml Btl OD 10/08/23 05:59 DIRECTED [facility] Miscellaneous Medication 0 ml 09/08/23 06:00 Tropicam./Phenyleph. (1/2.5%) 10 Ml Btl OD 10/08/23 05:59 DIRECTED [facility] Tetracaine HCl 0 ml 09/08/23 06:00 Tetracaine 0.5% 4 Ml Btl OD 10/08/23 05:59 DIRECTED [facility] PFSH Active Problems Active Problems: Problem Status Onset Code Posterior subcapsular age-related cataract of left eye H25.042 Cortical age-related cataract, left eye H25.012 Nuclear age-related cataract, left eye H25.12 Posterior subcapsular age-related cataract, right eye H25.041 Cortical age-related cataract, right eye H25.011 Nuclear age-related cataract, right eye H25.11 COVID-19 U07.1 Pneumonitis J18.9 Elevated LFTs R79.89 History of fracture Z87.81 Left knee DJD M17.12 Shortness of breath R06.02 Hematoma of left thigh S70.12XA Tinea of the body B35.4 Diverticulosis K57.90 Hemorrhoids K64.9 Nicotine dependence F17.200 Obesity E66.9 Sensorineural hearing loss of both ears H90.3 Sleep apnea G47.30 Umbilical hernia K42.9 Esophageal reflux K21.9 Medical History Medical History High cholesterol HTN (hypertension) Surgical History Surgical History 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) History of hernia repair History of colonoscopy Status post total right knee replacement (08/28/19) Tobacco Smoking/Tobacco Use Status: Former Tobacco Use Alcohol Alcohol Intake: current Alcohol intake frequency: a few times a week Alcohol type: beer Substance Use Substance use: Never Substance use type: does not use Vital Signs and Lab Results Vital Signs Comment Vital Signs Comment:: Temp Pulse Resp BP Pulse Ox 36.4 C L 61 17 157/91 H 97 09/08/23 07:00 09/08/23 07:00 09/08/23 07:00 09/08/23 07:00 09/08/23 07:00 Lab Results Blood Type / Crossmatch: No Data to Display Complete Blood Count: No Data to Display Complete Metabolic Panel: No Data to Display Liver Function Panel: No Data to Display Coagulation Panel: No Data to Display Cardiac Panel: No Data to Display Arterial Blood Gas: No Data to Display Venous Blood Gas: No Data to Display Pancreas Panel: No Data to Display Thyroid Panel: No Data to Display Infectious Disease: No Data to Display Blood Cultures: No Data to Display Toxicology Panel: No Data to Display Imaging and Studies Imaging and Studies Study information below may be from another EMR and interpreted by another provider. Please see original notes in EMR for more complete details. 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 questionable Q-wave in aVF. Unremarkable otherwise. 07/24/20 Anesthesia Assessment and Plan Anesthesia History Personal History: No History of Anesthesia Complications Family History: No Family History of Anesthesia Complications Exercise Tolerance Exercise Tolerance: Metabolic Equivalents<4 Pertinent Negatives Pertinent Negatives: No Major Cardiovascular Symptoms or Complaints and No Major Pulmonary Symptoms or Complaints (bit of a cold per patient, lungs clear) Cardiac & Pulmonary Exam Cardiac Exam: Normal S1/S2 Heart Sounds Pulmonary Exam: Clear Bilateral Breath Sounds Implantable Cardiac Device Does patient have a Pacemaker or an ICD?: No Airway Exam Known Difficult Airway: No Mallampati Class: 1 Mouth Opening: Normal (> 3cm) Thyromental Distance: Greater than 3 cm Neck Range of Motion: Full ROM Neck Circumference: Normal Teeth Condition: Edentulous ASA Classification ASA Score: ASA 3 Emergency Case?: No NPO Status NPO Status: NPO Clears >2 hours, Solids >8 hours Anesthesia Plan Resuscitation Status: Full Code Anesthesia Technique: MAC Anesthesia Airway Planned: Natural Airway Monitors Used: Standard Monitors Preoperative Comments:: Requesting MKO for this visit
[2023-09-08 07:00] VITALS: BP 157/91; PULSE 61; RESP 17; TEMP 36.4; O2SAT 97
[2023-09-08 07:25] VITALS: BMI 40.1
[2023-09-08] MEDS: Tetracaine 0.5% 4 ML BTL OD (08:24)
[2023-09-08] MEDS: Povidone-Iodine Ophth 30 ML BTL (08:25)
[2023-09-08] MEDS: Balanced Salt Soln.-PLUS 500 ML BAG OP (08:30)
[2023-09-08] MEDS: Lidocaine 1% Pres-Free 5 ML VIAL (08:31)
[2023-09-08] MEDS: Trypan Blue 0.06% 0.5 ML SYR (08:31)
[2023-09-08] MEDS: Duovisc Viscoelastic System EACH 1 EACH (08:31)
[2023-09-08 08:50] VITALS: BP 135/90; PULSE 61; RESP 18; TEMP 36.3; O2SAT 95
--- NOTE | 2023-09-08 08:50 | W.PM.DSUDISC ---
Date of service: 09/08/23 Time of Service: 08:50 Discharge Plan Disposition Patient Disposition: Home Discharge Details Attending Provider: Sami Coats Primary Care Provider: Unknown,Unknown Home Meds and New Rx's Prescriptions: No Action gemfibrozil 600 mg tablet 600 mg PO BID hydrochlorothiazide 25 mg tablet 25 mg PO DAILY losartan 100 mg tablet 100 mg PO DAILY multivitamin,tx-minerals Tablet 1 tab PO DAILY aspirin 81 mg tablet,delayed release (DR/EC) 81 mg PO DAILY cholecalciferol (vitamin D3) 25 mcg (1,000 unit) capsule 25 mcg PO DAILY acetaminophen 500 mg tablet 1,000 mg PO Q8H PRN (Reason: pain) Qty: 90 3RF naproxen 500 mg tablet 500 mg PO BID PRNQty: 60 0RF Discharge Instructions Stand Alone Forms: DSU Post-Op Cataract, Lalit Welch (DSU) Discharge Orders Discharge Orders: Discharge Order (Routine); Ordered 09/08/23 Ordered By: Sami Coats DS: Diagnosis Discharge Diagnosis (1) Posterior subcapsular age-related cataract of left eye: Status: Resolved (2) Cortical age-related cataract, left eye: Status: Resolved (3) Nuclear age-related cataract, left eye: Status: Resolved
--- NOTE | 2023-09-08 08:51 | ROE_ITS ---
Date of service: 09/08/23 Time of Service: 08:51 Operative Note Operative Note DATE OF PROCEDURE: 09/08/23 PRE-OP DIAGNOSIS: Nuclear/cortical/posterior subcapsular cataract, left eye POST-OP DIAGNOSIS: same PROCEDURE: Cataract extraction using phacoemulsification with intraocular lens implant, left eye SURGEON: Sami Coats ANESTHESIA TYPE: Local By Surgeon and MAC Refer to Anesthesia Record PATHOLOGY: none sent COMPLICATIONS: None Patient was transported to: same day Patient's condition: stable Implants: Kota Clareon [id number] Indications: Progressive decreased vision due to cataract, left eye Procedure Description: CATARACT SURGERY OPERATIVE REPORT PREOPERATIVE DIAGNOSIS: Nuclear/cortical/posterior subcapsular cataract, left eye POSTOPERATIVE DIAGNOSIS: Same OPERATION: Cataract extraction using phacoemulsification with posterior chamber intraocular lens implant, left eye. IOL: IOL Cabin Cleaner/Model: Kota Clareon [id number] IOL Power: + 19.5 diopters IOL Serial Number: [id number] Optic Diameter: 6.0mm Haptic/Overall Diameter: 13.0mm PHACO INFO: Kota Lander Automotiveurion Vision System with OZil and Active Fluidics Cumulative Dispersed Energy (CDE): 3.96 seconds SURGEON: Sami Coats MD, LIBAN ANESTHESIA: Monitored Anesthesia Care (MAC), with local sub-tenon's anesthetic infiltration COMPLICATIONS: None SPECIMENS: None INDICATIONS FOR PROCEDURE: The patient is a 78-year-old male with history of diminished visual acuity in both eyes secondary to the development of significant nuclear/cortical/posterior subcapsular cataract. He has already undergone cataract surgery in the right eye and is doing well postoperatively. He now presents for cataract surgery in the left eye. See office notes for detailed information. PROCEDURE: The correct surgical eye was identified and marked as the left eye and the pupil was dilated in the preoperative area using mydriatics and cycloplegics. The dilated pupil size was 7.0 mm. Oral sedation was administered in the form of an Imprimis MKO Melt (midazolam 3mg/ketamine 25mg/ondansetron 2mg). The patient was brought to the operating room where cardiopulmonary monitoring was instituted and surgical time-out was performed, confirming the correct operative eye and IOL power. Topical anesthesia was administered and ophthalmic povidone-iodine 5% was instilled into the conjunctival fornices. The paulo-ocular area was prepped with Betadine 10% solution and draped in the usual sterile fashion for intraocular surgery, including an aperture drape. A Tegaderm transparent film dressing was cut in half and used to cover the lashes and lid margins. Care was taken to sequester the lashes and lid margins under the Tegaderm dressing. A lid speculum was placed between the lids of the operative eye and the Kota LuxOR Revalia operating microscope was maneuvered into position. Dhaval scissors were then used to make a conjunctival buttonhole approximately 6mm posterior to the limbus in the inferonasal quadrant. Blunt dissection was carried out to expose bare sclera, and a blunt-tipped sub-tenon?s anesthesia cannula was introduced and passed posteriorly along the globe where non- preserved plain lidocaine was injected into posterior sub-Tenon?s space. A sideport knife was used to make a paracentesis port. VisionBlue was injected into the anterior chamber and allowed to sit for 20 seconds. Intraocular phenylephrine/lidocaine was injected into the anterior chamber. The anterior chamber was then filled with viscoelastic. A keratome knife was used construct a two-plane clear corneal tunnel extending 2.0mm into clear cornea. A flap was raised on the anterior capsule and capsulorhexis forceps were used to complete a continuous curvilinear capsulorhexis of 5.0 mm. Balanced salt solution was then used to perform cortical cleaving hydrodissection and nuclear hydrodelineation until the lens could be freely rotated within the capsular bag. The lens nucleus was then disassembled and removed within the capsular bag and iris plane using phacoemulsification. Residual cortical material was removed using the irrigation/aspiration handpiece. The posterior capsule was carefully polished to remove as much residual lens epithelial cells as safely possible. The capsular bag was then inflated and the anterior chamber deepened with viscoelastic. The lens implant described above was inserted into the capsular bag using the Kota Autonome Injector. A Kuglen hook was used to dial the IOL into position. Residual viscoelastic was then removed first from posterior to the IOL, then from the anterior chamber using the I/A handpiece. The lens implant was noted to center nicely within the capsular bag. The incisions were stromally hydrated, and the anterior chamber was reformed using BSS. Then 0.5cc of moxifloxacin 1.0mg/ml were injected into the capsular bag and anterior chamber. The incisions were checked with a Weck spear and found to be secure. Several drops of ophthalmic povidone-iodine 5% were then applied to the eye followed by two drops of combination steroid/NSAID/antibiotic solution. The drapes were removed and a clear plastic protective eye shield was placed over the eye. The patient was then returned to Same Day Surgery in stable condition.
--- NOTE | 2023-09-08 09:09 | W.ANESPOSTOP ---
Postoperative Evaluation Date, Time and Location Date Performed: 09/08/23 Time Performed: 08:50 Patient Location: Day Surgery Unit Vital Signs Most Recent Imported Vital Signs: Most Recent Vital Signs Temp Pulse Resp BP Pulse Ox 36.3 C L 61 18 135/90 95 09/08/23 08:50 09/08/23 08:50 09/08/23 08:50 09/08/23 08:50 09/08/23 08:50 Pain Score Most Recent Pain Score: Most Recent Pain Score Pain Level 0 09/08/23 07:00 Assessment Mental Status: Awake (Alert & Oriented to Patient Baseline) Airway and Respiratory Function: Patent airway with normal (patient baseline) respiratory exam Cardiovascular Function: Hemodynamically Stable Hydration Status: Adequately Hydrated Nausea & Vomiting: No Nausea or Vomiting Pain: Pt. Denies Any Pain Peripheral Nerve Block: Other (Dr. Pauly walker)
[2023-09-08 09:20] VITALS: BP 128/78; PULSE 63; RESP 18; TEMP 36.1; O2SAT 95
== END 2023-09-08 09:25 | disposition home or self-care (01) ==
PROVIDERS: Visit Provider Ophthalmology
PROC: (CPT 66984; principal; 2023-09-08 08:15)
DX: H25.042 Posterior subcapsular polar age-related cataract, left eye (principal); H25.012 Cortical age-related cataract, left eye; H25.12 Age-related nuclear cataract, left eye; Z98.41 Cataract extraction status, right eye
CPT/HCPCS: 66984; 00123; V2632; J2003